=== PATIENT | female | born 1965 | race Caucasian/White ===

== ENCOUNTER → 2019-06-21 11:53 | Outpatient (BNVA) | payer MEDICARE, SELFPAY | PROVIDERS: Family Provider Nurse Practitioner Family; PCP Family Medicine; Visit Provider Family Medicine | DX: E78.5 Hyperlipidemia, unspecified (principal); I10 Essential (primary) hypertension; M25.519 Pain in unspecified shoulder | CPT/HCPCS: 80053; 80061; 84443; 85025 ==

== ENCOUNTER → 2019-08-23 11:55 | Outpatient (BNVA) | payer MEDICARE, SELFPAY | PROVIDERS: Family Provider Nurse Practitioner Family; PCP Family Medicine; Visit Provider Family Medicine | DX: I10 Essential (primary) hypertension (principal); E78.5 Hyperlipidemia, unspecified | CPT/HCPCS: 80053; 80061; 85025 ==

== ENCOUNTER → 2021-07-01 11:45 | Outpatient (BNVA) | payer MEDICARE, SELFPAY | PROVIDERS: Family Provider Nurse Practitioner Family; PCP Family Medicine; Visit Provider Family Medicine | DX: I10 Essential (primary) hypertension (principal); G43.909 Migraine, unspecified, not intractable, without status migrainosus; E78.2 Mixed hyperlipidemia | CPT/HCPCS: 80053; 80061; 84443; 85025 ==

== ENCOUNTER 2021-09-14 20:15 | Emergency (ER) | payer MEDICARE, SELFPAY ==
[2021-09-14 20:24] VITALS: BP 169/99; PULSE 68; RESP 18; TEMP 36.7; O2SAT 96; BMI 27.4
--- NOTE | 2021-09-14 20:24 | XRR_ITS ---
PROCEDURE INFORMATION: Exam: XR Right Forearm Exam date and time: 09/14/2021 8:37 PM Age: 55 years old Clinical indication: Injury or trauma; Fall; Blunt trauma (contusions or hematomas); Arm, lower; Right; Patient HX: Tripped and fell C/O pain R humerus to wrist TECHNIQUE: Imaging protocol: Radiologic exam of the Right forearm. Views: 2 views. COMPARISON: No relevant prior studies available. FINDINGS: Bones/joints: There is subtle contour abnormality at the radial head neck junction suspicious for fracture. Soft tissues: There are anterior and posterior fat pad signs. XR/XR forearm RT 2V [id number] IMPRESSION: There is subtle contour abnormality at the radial head neck junction suspicious for fracture.
--- NOTE | 2021-09-14 20:24 | XRR_ITS ---
PROCEDURE INFORMATION: Exam: XR Right Humerus Exam date and time: 09/14/2021 8:29 PM Age: 55 years old Clinical indication: Injury or trauma; Fall; Blunt trauma (contusions or hematomas); Arm, upper; Right; Patient HX: Tripped and fell C/O pain R humerus to wrist TECHNIQUE: Imaging protocol: Radiologic exam of the Right humerus. Views: 2 or more views. COMPARISON: CT chest con [id number] 09/14/2018 2:43 PM FINDINGS: Bones/joints: Normal. Soft tissues: Normal. XR/[place] [id number] IMPRESSION: No acute findings.
--- NOTE | 2021-09-14 20:24 | XRR_ITS ---
PROCEDURE INFORMATION: Exam: XR Right Elbow Exam date and time: 09/14/2021 8:37 PM Age: 55 years old Clinical indication: Injury or trauma; Fall; Blunt trauma (contusions or hematomas); Elbow; Right; Patient HX: Tripped and fell C/O pain R humerus to wrist TECHNIQUE: Imaging protocol: Radiologic exam of the Right elbow. Views: 3 or more views. COMPARISON: [place] [id number] 09/14/2021 8:29 PM FINDINGS: Bones/joints: There is subtle contour abnormality at radial head neck junction suspicious for fracture. Soft tissues: Anterior and posterior fat pad signs consistent with elbow joint effusion. XR/XR elbow RT min 3V* [id number] IMPRESSION: 1. There is subtle contour abnormality at the radial head neck junction suspicious for fracture. 2. Elbow joint effusion.
--- NOTE | 2021-09-14 20:24 | XRR_ITS ---
PROCEDURE INFORMATION: Exam: XR Right Wrist Exam date and time: 09/14/2021 8:37 PM Age: 55 years old Clinical indication: Injury or trauma; Fall; Blunt trauma (contusions or hematomas); Right; Patient HX: Tripped and fell C/O pain R humerus to wrist TECHNIQUE: Imaging protocol: Radiologic exam of the Right wrist. Views: 3 or more views. COMPARISON: No relevant prior studies available. FINDINGS: Bones/joints: Normal. Soft tissues: Normal. XR/XR wrist RT min 3V* [id number] IMPRESSION: No acute findings.
--- NOTE | 2021-09-14 20:25 | W.ED.UPPEXIN ---
HPI - Extremity Injury (Upper) General: Chief Complaint: Fall Stated Complaint: right arm injury Time Seen by Provider: 09/14/21 20:16 Source: patient Mode of arrival: ambulatory Limitations: no limitations History of Present Illness: Patient is a nice 55-year-old female who presents to ED today along with her for evaluation of her right upper extremity injury that she sustained earlier today after tripping over her dog. She states she is not sure how she fell onto the extremity and does not know if she fell onto her outstretched hand. She complains of pain to the distal humerus region into her elbow, forearm, and wrist. She states she did fall onto her right knee however this is not bothering her and she is ambulatory without difficulty. She denies striking her head or LOC. No neck or back pain. She does not complain of any numbness, tingling, loss of sensation to her upper extremity. MD complaint: injury to: right, arm, elbow, forearm and wrist Onset (ago): hour(s) Place: home Relieving factors: immobilization Exacerbating factors: movement of extremity Context: fall Associated symptoms: Reports no associated symptoms; Denies neck pain Review of Systems Musc: Reports: extremity pain (R UE) and joint pain (R elbow/wrist); Denies: neck pain, back pain, extremity swelling or joint swelling Neuro: Denies: numbness in extremities or sensory changes [facility] ED PFSH: Medical History (Updated 09/14/21 @ 21:26 by HARDEEP Howell) Hyperlipidemia Hypertension Stroke Thoracic aortic aneurysm Surgical History History of hysterectomy Family History Other Cancer Diabetes Hypertension Social History Smoking and tobacco status: current every day smoker (1/2 PPD) Alcohol intake: current Alcohol intake frequency: holidays/special occasions only Household members: spouse Marital status: Physical Exam Const: COMMON NORMALS: no acute distress, patient oriented x3, no limitations and alert GENERAL APPEARANCE: cooperative Extremity: COMMON NORMALS: normal to inspection and capillary refill normal GENERAL: Yes normal exam except as noted RIGHT UPPER EXTREMITY: Yes upper arm, Yes elbow joint, Yes lower arm and Yes wrist OTHER: pt has tenderness from R distal humerus down to her wrist; there are no obvious bony deformities; NV intact with normal sensation, pulses, and cap refill; pain seems to be worse in the elbow/forearm with supination/pronation Neuro: COMMON NORMALS: patient oriented x3, moves all extremities, no focal motor deficits and no sensory deficits noted SENSORIUM/ORIENTATION: Yes alert Skin: COMMON NORMALS: no rashes or lesions noted GENERAL SKIN EXAM: no rashes or lesions noted TRAUMA: no lacerations or abrasions Course Vital Signs: Vital signs: Vital Signs Temperature 98.1 F 09/14/21 20:24 Pulse Rate 68 09/14/21 20:24 Respiratory Rate 20 H 09/14/21 20:58 Blood Pressure 169/99 09/14/21 20:24 Pulse Oximetry 96 09/14/21 20:24 MDM - Extremity Injury (Upper) Medical Decision Making Personal interpretation of XRs show positive fat pad signs and probable radial head fracture. Will splint/sling and have her follow up with orthopedics. Lab Data Radiology Impressions Elbow X-Ray 09/14/21 20:24 IMPRESSION: 1. There is subtle contour abnormality at the radial head neck junction suspicious for fracture. 2. Elbow joint effusion. Forearm X-Ray 09/14/21 20:24 IMPRESSION: There is subtle contour abnormality at the radial head neck junction suspicious for fracture. Humerus X-Ray 09/14/21 20:24 IMPRESSION: No acute findings. Wrist X-Ray 09/14/21 20:24 IMPRESSION: No acute findings. Discharge Plan Discharge Patient Disposition: Home Clinical Impression: Closed fracture of head of right radius Qualifiers: Encounter type: initial encounter Fracture alignment: nondisplaced Qualified Code(s): S52.124A - Nondisplaced fracture of head of right radius, initial encounter for closed fracture Condition: Stable Prescriptions: New hydrocodone-acetaminophen 5-325 mg tablet 1 tab PO Q6H PRN (Reason: pain) Qty: 14 0RF No Action acetaminophen [Tylenol] 325 mg tablet 325 mg PO QID PRN0RF hydrochlorothiazide 25 mg tablet 25 mg PO DAILY Qty: 90 5RF Bystolic 5 mg tablet 5 mg PO DAILY Qty: 90 3RF Rx Instructions: Patient has coupon ezetimibe [Zetia] 10 mg tablet 10 mg PO DAILY Qty: 90 0RF Ultra CoQ10 75 mg capsule 75 mg PO DAILY Qty: 90 4RF Discharge Orders: Discharge ED (Routine); Ordered 09/14/21 Ordered By: Irina Lawrence Referrals: Marybeth Ellis MD [Primary Care Provider] - Patient Instructions: Opioid Safety Coding Level of Care Code ED Chief Wharfinger for Chg Fwd Exam Expanded Problem Focused
[2021-09-14 20:58] VITALS: RESP 20
[2021-09-14] MEDS: morphine 4 mg/mL SDV 1 mL IM (20:58)
[2021-09-14 21:50] VITALS: BP 148/83; PULSE 68; RESP 16; O2SAT 93
--- NOTE | 2021-09-15 07:40 | DCPLANNER ---
Addendum entered by Shanta Lopez 09/17/21 15:51: Patient had a follow up appointment scheduled for 09.17.[address] Mckinley at ortho - patient did attend appointment. Original Note: web project manager had message to schedule a follow up appointment for patient with ortho. web project manager sent patients information to the front office staff at ortho. Patients information will be printed and reviewed. Clinic will call patient with appointment information.
== END 2021-09-14 21:51 | disposition home or self-care (01) ==
PROVIDERS: Emergency Provider Physician Assistant; PCP Family Medicine
DX: S52.124A Nondisplaced fracture of head of right radius, initial encounter for closed fracture (principal); E78.5 Hyperlipidemia, unspecified; I10 Essential (primary) hypertension; Z86.73 Personal history of transient ischemic attack (TIA), and cerebral infarction without residual deficits; F17.210 Nicotine dependence, cigarettes, uncomplicated; W01.0XXA Fall on same level from slipping, tripping and stumbling without subsequent striking against object, initial encounter
CPT/HCPCS: 29505; 73060; 73080; 73090; 73110; 96372; 99284; J2270

== ENCOUNTER → 2021-09-17 13:51 | Outpatient (BNVA) | payer MEDICARE, SELFPAY | PROVIDERS: PCP Family Medicine; Visit Provider Orthopaedic Surgery | DX: W01.0XXA Fall on same level from slipping, tripping and stumbling without subsequent striking against object, initial encounter (principal); S52.124A Nondisplaced fracture of head of right radius, initial encounter for closed fracture | CPT/HCPCS: 24650; 99203 ==

== ENCOUNTER → 2021-10-08 10:31 | Outpatient (BNVA) | payer MEDICARE, SELFPAY | PROVIDERS: PCP Family Medicine; Visit Provider Nurse Practitioner Family | DX: S52.121A Displaced fracture of head of right radius, initial encounter for closed fracture (principal); W01.0XXA Fall on same level from slipping, tripping and stumbling without subsequent striking against object, initial encounter | CPT/HCPCS: 73080; 99203; 99214 ==

== ENCOUNTER → 2021-11-05 08:52 | Outpatient (BNVA) | payer MEDICARE, SELFPAY | PROVIDERS: PCP Family Medicine; Visit Provider Nurse Practitioner Family | DX: S52.124A Nondisplaced fracture of head of right radius, initial encounter for closed fracture (principal); W01.0XXA Fall on same level from slipping, tripping and stumbling without subsequent striking against object, initial encounter | CPT/HCPCS: 73080; 99213; 99214 ==

== ENCOUNTER → 2022-08-05 10:33 | Outpatient (BNVA) | payer MEDICARE, SELFPAY | PROVIDERS: PCP Family Medicine; Visit Provider Family Medicine | DX: M25.531 Pain in right wrist (principal); I10 Essential (primary) hypertension; R53.83 Other fatigue; E78.5 Hyperlipidemia, unspecified | CPT/HCPCS: 73110; 80053; 80061; 84443; 85025 ==

== ENCOUNTER → 2022-09-07 08:49 | Outpatient (BNVA) | payer MEDICARE, SELFPAY | PROVIDERS: PCP Family Medicine; Referring Provider Family Medicine; Visit Provider Student in an Organized Health Care Education/Training Program | DX: M65.4 Radial styloid tenosynovitis [de Quervain] (principal) | CPT/HCPCS: 73110; 99203 ==

== ENCOUNTER → 2023-05-20 17:02 | Outpatient (BNVA) | payer MEDICARE, SELFPAY | PROVIDERS: PCP Family Medicine; Visit Provider Family Medicine | DX: R32 Unspecified urinary incontinence (principal) | CPT/HCPCS: 81000 ==

== ENCOUNTER → 2023-06-21 08:55 | Outpatient (BNVA) | payer MEDICARE, SELFPAY | PROVIDERS: PCP Family Medicine; Visit Provider Nurse Practitioner Family | DX: R30.0 Dysuria (principal) | CPT/HCPCS: 81000 ==

== ENCOUNTER 2023-07-08 13:54 | Outpatient (CLI) | payer MEDICARE, SELFPAY ==
--- NOTE | 2023-07-08 14:02 | XR_ITS ---
WS: [email or web address] Lumbar spine, 3 views, 07/08/2023 Clinical Data: M54.9 - Dorsalgia, unspecified Comparison: None. Findings: No compression fractures or subluxation is seen. No disc space narrowing is seen. The transverse proc esses and SI joints are normal. There are minimal osteoarthritic spurs lumbar vertebral bodies L1-L4. There is a dextroscoliosis loren g with osteoporosis. The abdominal aorta shows calcification but no aneurysm. XR/XR lumbar spine 2-3V* [id number] Impression: Minimal osteoarthritis along with osteoporosis and dextroscoliosis.
--- NOTE | 2023-07-08 14:02 | XR_ITS ---
WS: [email or web address] KUB, AP view, 07/08/2023 Clinical Data: R10.9 - Unspecified abdominal pain Comparison: None. Findings: No abnormal intraabdominal masses or calcifications are seen. There is no dilatated small bowel or ev idence of obstruction. There is a moderate amount of fecal material throughout the colon. There is a dextroscoliosis with os teoarthritis of the lumbar vertebral bodies. There are probably cartilage calcifications overlying th e right kidney. XR/XR KUB [id number] Impression: Moderate fecal material in the colon.
--- NOTE | 2023-07-08 14:02 | XR_ITS ---
WS: [email or web address] Sacroiliac joints, 3 views, 07/08/2023 Clinical Data: M53.3 - Sacrococcygeal disorders, not elsewhere classified Comparison: None. Findings: The SI joints are normal in width. No erosion, sclerosis or destruction is seen. There are no fractur es or dislocations. The adjacent visualized pelvis and hips are unremarkable. XR/XR sacroiliac jts m 3V [id number] Impression: Negative SI joints.
== END 2023-07-08 13:55 | disposition home or self-care (01) ==
LOC: RAD 13:55
PROVIDERS: PCP Family Medicine; Visit Provider Nurse Practitioner Family
DX: R10.9 Unspecified abdominal pain (principal); M53.3 Sacrococcygeal disorders, not elsewhere classified; M54.9 Dorsalgia, unspecified; M81.0 Age-related osteoporosis without current pathological fracture; M41.86 Other forms of scoliosis, lumbar region
CPT/HCPCS: 72100; 72202; 74018

== ENCOUNTER 2024-08-09 11:27 | Emergency (ER) | payer MEDICARE, SELFPAY ==
--- NOTE | 2024-08-09 11:29 | CT_ITS ---
WS: [email or web address] CT HEAD TECHNIQUE: Noncontrast CT of the head obtained from the skullbase to the vertex. CLINICAL INFORMATION: Symptoms of acute stroke COMPARISON: 2018 DLP: [address] scans at [facility] use at least one of these dose optimization techniques: automated exposure control; mA and/or kV adjustment per patient size (includes targeted exams where dose is matched to clinical indication); or iterative reconstruction. FINDINGS: No evidence of intracranial hemorrhage or mass effect. Ventricular system and basal cisterns are patent. Moderate small vessel changes with mild parenchymal volume loss. Postoperative changes from prior aneurysm clip placement along the distal LEFT vertebral artery in the PICA territory and LEFT MCA. Tiny chronic lacunar infarct LEFT caudate. Postoperative changes LEFT occipital craniectomy and LEFT temporal craniotomy. Paranasal sinuses and mastoid air cells are well aerated. .Normal visualized soft tissues. CT/CT head thrombolytic [id number] IMPRESSION: 1. No evidence of intracranial hemorrhage or mass effect. 2. Vascular calcification. 3. Moderate small vessel changes progressed since 2018. Mild parenchymal volum e loss. 4. Previously described LEFT MCA and LEFT PICA aneurysm clipping 5. Tiny chronic lacunar infarct LEFT caudate unchanged. 6. No acute intracranial findings. Notified Wilfredo Robles DO at 08/09/2024 11:41 AM.
--- NOTE | 2024-08-09 11:29 | ECG_ITS ---
[employer] Test Date: 2024-08-09 Pat Name: Em Cleveland Department: Room: Gender: Female Grocery Shopper: : 1965 Requested By: Wilfredo Smith Order Number: [id number] Ochoa MD: Pacheco Holbrook M.D. Measurements Intervals [place] Rate: 62 P: 52 NC: 158 QRS: 24 QRSD: 92 T: 43 QT: 423 QTc: 430 Interpretive Statements SINUS RHYTHM MODERATE ST DEPRESSION [0.05+ mV ST DEPRESSION] No previous ECG available for comparison Electronically Signed On 08-10-2024 06:03:07 CDT by Pacheco Holbrook M.D. [email or web address]
--- NOTE | 2024-08-09 11:30 | W.ED.NEUROSD ---
HPI - Neuro Symptoms/Deficit General: Chief Complaint: Neuro Symptoms/Deficit Stated Complaint: Stroke alert Time Seen by Provider: 08/09/24 11:31 History of Present Illness: 58-year-old female presents emergency room. She is a stroke alert. She had sharp pain in the back of her head earlier this morning went to her primary care doctor some concern about her balance that seems to have resolved. Initially seen in CT suite for stroke score is 0 Associated symptoms: Deny chest pain Related Data Home Medications ?Medication ?Instructions ?Recorded ?Confirmed acetaminophen 325 mg tablet 325 mg PO QID PRN Pain 04/22/20 08/09/24 (Tylenol) Previous Rx's ?Medication ?Instructions ?Recorded hydrochlorothiazide 25 mg tablet 25 mg PO DAILY #90 tabs 08/09/24 triamcinolone acetonide 0.1 % 1 applic topical BID 14 days #80 08/09/24 topical cream grams Allergies Allergy/AdvReac Type Severity Reaction Status Date / Time Iodinated Contrast Media Allergy rash Verified 08/19/23 10:36 ketorolac (From Toradol) Allergy Unknown Verified 08/19/23 10:12 Review of Systems Const: Denies: fever(s) or chills Card: Denies: chest pain Resp: Denies: dyspnea GI: Denies: abdominal pain : Denies: dysuria, urinary frequency or urinary urgency Musc: Denies: neck pain or back pain Skin/Breast: Denies: rash PFSH ED PFSH: Medical History Brain aneurysm 2 surgeries clips placed 2001 and 2011 Hypertension Stroke Thoracic aortic aneurysm Hyperlipidemia Surgical History History of hysterectomy Family History Other Cancer Diabetes Hypertension Social History Smoking and tobacco/nicotine status: current every day tobacco/nicotine user Alcohol intake: current Alcohol intake frequency: holidays/special occasions only Household members: spouse Marital status: NIH stroke score NIHSS: Level Of Consciousness - 1a: 0 Level Of Consciousness Questions - 1b: Both Correct Level Of Consciousness Commands - 1c: Both Correct Best Gaze - 2: Normal Visual Callahan - 3: No Visual Loss Facial Palsy - 4: Normal Motor Arm Right - 5: No Drift Motor Arm Left - 5: No Drift Motor Leg Right - 6: No Drift Motor Leg Left - 6: No Drift Limb Ataxia - 7: Absent Sensory - 8: Normal Best Language - 9: No Aphasia Dysarthia - 10: Normal Extinction And Inattention - 11: 0 Score: Total Score: 0 Physical Exam Const: COMMON NORMALS: no acute distress GENERAL APPEARANCE: cooperative and comfortable ORIENTATION/CONSCIOUSNESS: Yes awake, Yes oriented to person, Yes oriented to place and Yes oriented to time HENMT: COMMON NORMALS: normocephalic, atraumatic and hearing grossly normal bilaterally HEAD & SCALP: normocephalic and atraumatic Resp: COMMON NORMALS: normal respiratory effort, No retractions, No use of accessory muscles and clear to auscultation bilaterally AUSCULTATION: clear to auscultation bilaterally Cardio: COMMON NORMALS: regular rate, regular rhythm and No murmurs present (Cardio) RATE: regular rate RHYTHM: regular rhythm GI: COMMON NORMALS: Soft to palpation and No hepatosplenomegaly present AUSCULTATION: Yes normoactive bowel sounds PALPATION: Yes Soft to palpation, No Tenderness to palpation present (GI), No Guarding due to palpation present (GI) and Yes No hepatosplenomegaly present Extremity: COMMON NORMALS: normal to inspection, capillary refill normal, no clubbing, cyanosis or edema, no calf tenderness and no pedal edema Neuro: SENSORIUM/ORIENTATION: Yes oriented to person, Yes oriented to place and Yes oriented to time Skin: COMMON NORMALS: no rashes or lesions noted GENERAL SKIN EXAM: no rashes or lesions noted Course Vital Signs: Vital signs: Vital Signs Pulse Rate 73 08/09/24 13:23 Respiratory Rate 17 08/09/24 13:00 Blood Pressure 165/82 08/09/24 13:23 Pulse Oximetry 96 08/09/24 13:23 MDM - Neuro Symptoms/Deficit Medical Decision Making Patient refuses CT of the head. She is concerned that the dye will get caught in valves in her veins and then cause pain when it comes gushing through after the valves break open. Try to discuss with is not really how the medicine works additionally that there are not valves in the arterial side where we are actually trying to evaluate the brain. As to the allergy that he dies have changed drastically and premedicate this is usually not an issue. She is convinced that it will cause severe pain and refuses. She has no residual symptoms at this time we will discharge her home have her follow-up with her primary care doctor. No sign the patient had TIA or stroke at this time. The sharp sudden headache absent any other neurologic findings do not believe that she had an acute neurologic event this morning in terms of stroke or TIA. Lab Data 08/09/24 11:35 08/09/24 11:[address] 08/09/24 11:29 IMPRESSION: 1. No evidence of intracranial hemorrhage or mass effect. 2. Vascular calcification. 3. Moderate small vessel changes progressed since 2018. Mild parenchymal volume loss. 4. Previously described LEFT MCA and LEFT PICA aneurysm clipping 5. Tiny chronic lacunar infarct LEFT caudate unchanged. 6. No acute intracranial findings. Notified Wilfredo Robles DO at 08/09/2024 11:41 AM. Laboratory Results WBC 8.72 10^3/uL (3.29-11.43) 08/09/24 11:35 RBC 4.08 10^6/uL (3.85-5.65) 08/09/24 11:35 Hgb 12.90 g/dL (11.27-16.99) 08/09/24 11:35 Hct 38.3 % (36-47) 08/09/24 11:35 MCV 93.9 fl (85-98) 08/09/24 11:35 MCH 31.6 pg (27-33) 08/09/24 11:35 MCHC 33.7 g/dL (30-55) 08/09/24 11:35 RDW 14.6 % (12.1-15.1) 08/09/24 11:35 Plt Count 218 10^3/cmm (157-399) 08/09/24 11:35 MPV 10.1 fL (7.4-10.4) 08/09/24 11:35 Neut % (Auto) 62.9 % 08/09/24 11:35 Lymph % (Auto) 33.8 % 08/09/24 11:35 [place] % (Auto) 2.6 % 08/09/24 11:35 Eos % (Auto) 0.2 % 08/09/24 11:35 Baso % (Auto) 0.3 % 08/09/24 11:35 Neut # (Auto) 5.47 10^3/uL (1.8-7.7) 08/09/24 11:35 Lymph # (Auto) 3.0 10^3/uL (0.8-4.8) 08/09/24 11:35 [place] # (Auto) 0.2 10^3/uL (0.2-0.9) 08/09/24 11:35 Eos # (Auto) 0.0 10^3/uL (0.0-0.8) 08/09/24 11:35 Baso # (Auto) 0.0 10^3/uL (0.0-0.1) 08/09/24 11:35 Nucleated RBC % (auto) 0 % 08/09/24 11:35 Nucleated RBCs # 0.0 /100WBC 08/09/24 11:35 PT 13.80 SECONDS (12.1-14.9) 08/09/24 11:35 INR 0.99 (0.8-1.2) 08/09/24 11:35 APTT 28.2 SECONDS (23.9-36.7) 08/09/24 11:35 Sodium 137 mmol/L (136-145) 08/09/24 11:35 Potassium 3.9 mmol/L (3.5-5.1) 08/09/24 11:35 Chloride 101 mmol/L (98-107) 08/09/24 11:35 Carbon Dioxide 25 mmol/L (22-29) 08/09/24 11:35 Anion Gap 14.9 (5-19) 08/09/24 11:35 BUN 6 mg/dL (8-23) L 08/09/24 11:35 Creatinine 0.5 mg/dL (0.5-0.9) 08/09/24 11:35 GFR Calculation 125.9 mL/min (90-130) 08/09/24 11:35 Glucose 99 mg/dL (65-115) 08/09/24 11:35 POC Glucose 96 mg/dL (70-110) 08/09/24 11:55 Calculated Osmolality 282 mOsm/kg (285-295) L 08/09/24 11:35 Calcium 9.2 mg/dL (8.5-10.5) 08/09/24 11:35 Total Bilirubin 0.3 mg/dL (0.15-1.2) 08/09/24 11:35 AST 18 U/L (0-32) 08/09/24 11:35 ALT 10 U/L (0-33) 08/09/24 11:35 Alkaline Phosphatase 107 U/L (35-105) H 08/09/24 11:35 Total Protein 7.6 g/dL (6.6-8.7) 08/09/24 11:35 Albumin 4.3 g/dL (3.5-5.2) 08/09/24 11:35 Globulin 3.3 g/dL (1.3-4.6) 08/09/24 11:35 Urine Color Yellow (Yellow) 08/09/24 13:00 Urine Appearance Clear (CLEAR) 08/09/24 13:00 Urine pH 7.0 (5-7) 08/09/24 13:00 Ur Specific [place] 1.006 (1.005-1.030) 08/09/24 13:00 Urine Protein Negative (Negative) 08/09/24 13:00 Urine Glucose (UA) Negative (Normal) 08/09/24 13:00 Urine Ketones Negative (Negative) 08/09/24 13:00 Urine Blood Negative (Negative) 08/09/24 13:00 Urine Nitrate Negative (Negative) 08/09/24 13:00 Urine Bilirubin Negative (Negative) 08/09/24 13:00 Urine Urobilinogen 1.0 mg/dL (Negative) 08/09/24 13:00 Ur Leukocyte Esterase Negative (Negative) 08/09/24 13:00 Urine RBC 0-2 /hpf (0-2) 08/09/24 13:00 Urine WBC 0-5 /hpf (0-5) 08/09/24 13:00 Ur Squamous Epith Cells 0-5 /hpf (0-5) 08/09/24 13:00 Amorphous Sediment Not Reportable 08/09/24 13:00 Urine Bacteria None seen /hpf (NONE) 08/09/24 13:00 Hyaline Casts 0-4 /lpf H 08/09/24 13:00 Urine Opiates Screen Negative ng/mL (Negative) 08/09/24 13:00 Ur Barbiturates Screen Negative ng/mL (Negative) 08/09/24 13:00 Ur Phencyclidine Scrn Negative ng/mL (Negative) 08/09/24 13:00 Ur Amphetamines Screen Negative ng/mL (Negative) 08/09/24 13:00 U Benzodiazepines Scrn Negative ng/mL (Negative) 08/09/24 13:00 Urine Cocaine Screen Negative ng/mL (Negative) 08/09/24 13:00 U Marijuana (THC) Screen Negative ng/mL (Negative) 08/09/24 13:00 All radiology interpretation(s) finalized by discharge Discharge Plan Discharge Patient Disposition: Home Clinical Impression: Headache Condition: Stable Prescriptions: No Action acetaminophen [Tylenol] 325 mg tablet 325 mg PO QID PRN (Reason: Pain) triamcinolone acetonide 0.1 % cream 1 applic topical BID 14 Days Qty: 80 0RF hydrochlorothiazide 25 mg tablet 25 mg PO DAILY Qty: 90 3RF Discharge Orders: Discharge ED (Routine); Ordered 08/09/24 Ordered By: Wilfredo Robles Referrals: Ivet Cunningham FNP-C [Primary Care Provider, Family Practice] Discharge Diet: Usual diet Discharge Activity: Increase activity as tolerated Patient Instructions: Opioid Safety, Pain Management Activity Restrictions/Additional Instructions: Thank you for choosing [facility] for your healthcare needs today. It is very important that you follow up as instructed or that you return to the Emergency Department should you have concerns or if your condition changes or worsens in any way. You are seen in the emergency room after a sharp pain in your head. The CT of your head did not show any acute bleeding or acute stroke. Your stroke score was 0. We did recommend the CTA of the head and neck to evaluate for any further aneurysms or bleeding where the previous aneurysm clips were. You elected not to do this. You have recurrent symptoms recheck. Print Language: Beninese Coding Level of Care Code ED Emergency Management Coordinator for Maureen Hurley
[2024-08-09 11:48] LABS: Basophils % 0.3 %; Eosinophils % 0.2 %; Hematocrit 38.3 % (36-47); Lymphocytes % 33.8 %; Mean Corpuscular HGB Conc 33.7 g/dL (30-55); Mean Corpuscular Hemoglobin 31.6 pg (27-33); Mean Corpuscular Volume 93.9 fl (85-98); Mean Platelet Volume 10.1 fL (7.4-10.4); Monocytes # 0.2 10^3/uL (0.2-0.9); Monocytes % 2.6 %; Neutrophils # 5.47 10^3/uL (1.8-7.7); Neutrophils % 62.9 %; Nucleated Red Blood Cells % 0 %; Platelet Count 218 10^3/cmm (157-399); Red Blood Count 4.08 10^6/uL (3.85-5.65); Red Cell Distribution Width 14.6 % (12.1-15.1); White Blood Count 8.72 10^3/uL (3.29-11.43)
[2024-08-09 12:00] VITALS: BP 177/84; PULSE 63; O2SAT 96
[2024-08-09 12:00] LABS: INR 0.99 (0.8-1.2)
[2024-08-09 12:01] LABS: Partial Thromboplastin Time 28.2 SECONDS (23.9-36.7)
[2024-08-09 12:06] LABS: Alanine Aminotransferase 10 U/L (0-33); Albumin Level 4.3 g/dL (3.5-5.2); Alkaline Phosphatase 107 U/L (35-105); Anion Gap 14.9 (5-19); Aspartate Amino Transferase 18 U/L (0-32); Blood Urea Nitrogen 6 mg/dL (8-23); Calcium 9.2 mg/dL (8.5-10.5); Carbon Dioxide 25 mmol/L (22-29); Chloride 101 mmol/L (98-107); Globulin 3.3 g/dL (1.3-4.6); Glomerular Filtration Rate 125.9 mL/min (90-130); Glucose 99 mg/dL (65-115); Osmolality Calculated 282 mOsm/kg (285-295); Potassium 3.9 mmol/L (3.5-5.1); Sodium 137 mmol/L (136-145); Total Bilirubin 0.3 mg/dL (0.15-1.2); Total Protein 7.6 g/dL (6.6-8.7)
[2024-08-09 12:08] LABS: Glucose Point of Care 96 mg/dL (70-110)
[2024-08-09 13:00] VITALS: BP 165/73; PULSE 63; RESP 17; O2SAT 96
[2024-08-09 13:08] LABS: Bilirubin Urine Negative (Negative); Blood Urine Negative (Negative); Glucose Urine UA Negative (Normal); Ketones Urine Negative (Negative); Leukocyte Esterase Urine Negative (Negative); Nitrate Urine Negative (Negative); Protein Urine Negative (Negative); Specific Gravity, Urine 1.006 (1.005-1.030); Urine Appearance Clear (CLEAR); Urine Color Yellow (Yellow)
[2024-08-09 13:10] LABS: Add Urine Microscopic? YES; Bacteria Urine None Seen /hpf; Hyaline Casts Urine 0-4 /lpf; RBC Urine 0-2 /hpf (0-2); Squamous Epithelial Cell Urine 0-5 /hpf (0-5); WBC Urine 0-5 /hpf (0-5)
[2024-08-09 13:15] LABS: Amphetamines Screen Urine Negative (Negative); Barbiturates Screen Urine Negative (Negative); Benzodiazepines Screen Urine Negative (Negative); Cocaine Screen Urine Negative (Negative); Opiate Screen Urine Negative (Negative); PCP Screen Urine Negative (Negative); THC Screen Urine Negative (Negative)
[2024-08-09 13:23] VITALS: BP 165/82; PULSE 73; O2SAT 96
== END 2024-08-09 13:25 | disposition home or self-care (01) ==
PROVIDERS: Emergency Provider Family Medicine; PCP Nurse Practitioner Family
DX: R51.9 Headache, unspecified (principal); Z72.0 Tobacco use; E78.5 Hyperlipidemia, unspecified; I10 Essential (primary) hypertension
CPT/HCPCS: 36415; 36416; 70450; 80053; 80306; 81001; 82962; 85025; 85610; 85730; 93005; 99284

== ENCOUNTER 2024-08-18 02:13 | Inpatient (IN) | payer MEDICARE, SELFPAY ==
[2024-08-18] VITALS (17 sets, daily range): BP systolic 96–198; BP diastolic 57–104; PULSE 64–87; RESP 14–23; TEMP 36.5–37.1; O2SAT 94–99; BMI 22.3
--- OUTSIDE RECORDS SUMMARY | 2024-08-18 02:22 | XMS_ITS | Encounter Summary ---
Author Organization [facility] Address [address] [place] [address] Care Team Providers Care Hand Flesher Name Role Phone Unavailable Primary Care Provider Unavailabl e Encounter Details Date Type Department Care Team (Late st Contact Info) Description 06/02/2000 Outpatient Historical [facility] cSotty Dupree MD [address] [phone] Follow-up examination, following unspecified surgery (Primary Dx) Social History Tobacco Use Types Packs/Day Years Used Date Smoking Tobacco: Never Assessed Comments Unknown Sex and Gender Information Value Date Recorded Sex Assigned at Not on file 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
--- OUTSIDE RECORDS SUMMARY | 2024-08-18 02:22 | XMS_ITS | Encounter Summary ---
Author Organization [facility] Address [address] [place] [address] Care Team Providers Care Certified Novell Engineer Name Role Phone Unavailable Primary Care Provider Unavailabl e Encounter Details Date Type Department Care Team (Late st Contact Info) Description 05/12/2000 Outpatient Historical [facility] Scotty Dupree MD [address] [phone] Incisional hernia (Primary Dx) Social History Tobacco Use Types Packs/Day Years Used Date Smoking Tobacco: Never Assessed Comments Unknown Sex and Gender Information Value Date Recorded Sex Assigned at Not on file 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
--- OUTSIDE RECORDS SUMMARY | 2024-08-18 02:22 | XMS_ITS | Encounter Summary ---
Author Organization [facility] Address [address] [place] [address] Care Team Providers Care Liner Worker Name Role Phone Unavailable Primary Care Provider Unavailabl e Encounter Details Date Type Department Care Team (Latest Contact Info) Description 10/06/2001 Outpatient Historical [facility] [address] [place] [phone] Jason Jones, Victoriano Haas MD NO ADDRESS ON FILE Excessive menstruation (Primary Dx); ANEMIA NOS Social History Tobacco Use Types Packs/Day Years Used Date Smoking Tobacco: Never Assessed Comments Unknown Sex and Gender Information Value Date Recorded Sex Assigned at Not on file Legal Sex Female 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
--- OUTSIDE RECORDS SUMMARY | 2024-08-18 02:22 | XMS_ITS | Encounter Summary ---
Author Organization [facility] Address [address] [place] [address] Care Team Providers Care Candy Dipper Name Role Phone Unavailable Primary Care Provider Unavailabl e Encounter Details Date Type Department Care Team (Late st Contact Info) Description 12/14/2001 Outpatient Historical [facility] Leia, Scotty Valladares MD [address] [phone] SURGERY FOLLOWUP, UNSPEC (Primary Dx) Social History Tobacco Use Types Packs/Day Years Used Date Smoking Tobacco: Never Assessed Comments Unknown Sex and Gender Information Value Date Recorded Sex Assigned at Not on file Legal Sex Female 3:39 AM STOCK TAKER Gender Identity Not on file Sexual Orientation Not on file documented as of this encounter Plan of Treatment Not on file documented as of this encounter Visit Diagnoses Diagnosis Follow-up examination, following unspecified surgery- Primary documented in this encounter
--- OUTSIDE RECORDS SUMMARY | 2024-08-18 02:22 | XMS_ITS | Encounter Summary ---
Author Organization [facility] Address [address] [place] [address] Care Team Providers Care Quilt Stuffer Name Role Phone Unavailable Primary Care Provider Unavailabl e Encounter Details Date Type Department Care Team (Late st Contact Info) Description 07/21/2000 Outpatient Historical [facility] Leia, Scotty Valladares MD [address] [phone] Follow-up examination, following unspecified surgery (Primary Dx) Social History Tobacco Use Types Packs/Day Years Used Date Smoking Tobacco: Never Assessed Comments Unknown Sex and Gender Information Value Date Recorded Sex Assigned at Not on file Legal 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
--- OUTSIDE RECORDS SUMMARY | 2024-08-18 02:22 | XMS_ITS | Clinical Summary ---
Author Organization [facility] Address [address] [place] [address] [address] [place] [address] Care Team Providers Care Sheet Roller Operator Name Role Phone Unavailable Primary Care Provider Unavailabl e Allergies Active Allergy Reactions Criticality Noted Date Comments Ketorolac Tromethamine Delirium Medium 05/14/2009 Medications morphine (MS IR) 15 mg Oral tablet Take 15 mg by mouth 3 times daily. Active Morphine 15 mg Oral Cap Take 15 mg by mouth every 4 hours as needed. Active hydrOXYzine HCl (ATARAX) 25 mg Oral tablet Take 25 mg by mouth 3 times daily as needed for Itching. 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 Gender Identity Not on file Sexual Orientation Not on file Last Filed Vital Signs Vital Sign Reading Time Taken Comments Blood Pressure 170/100 05/14/2009 2:15 PM CDT Pulse 82 05/14/2009 2:15 PM CDT Temperature - - Respiratory Rate 14 05/14/2009 2:15 PM CDT Oxygen Saturation - - Inhaled Oxygen Concentration - - Weight 79.4 kg (175 lb) 05/14/2009 2:15 PM CDT Height - - Body Mass Index - - Plan of Treatment Health Maintenance Due Date Last Done Comments DTAP/TDAP/TD VACCINES (1 - Tdap) 09/17/1982 HPV/Cotest (21-29) 09/17/1984 CERVICAL CANCER SCREENING 09/17/1993 HPV/Cotest (30-65) 09/17/1993 PAP SMEAR 09/17/1993 BREAST CANCER SCREENING 2003 COLORECTAL SCREENING 09/17/2008 Colorectal Cancer Screening 09/17/2008 FIT-DNA Q 3 years 09/17/2008 FIT/FOBT Q 1 year 09/17/2008 Flex Sig/CT Colonography Q 5 years 09/17/2008 ZOSTER VACCINE (1 of 2) 09/17/2013 INFLUENZA VACCINE (#1) 2023 RSV VACCINE (60+ or ) (1 - 1-dose 75+ series) 09/17/2038 HEPATITIS B VACCINES Aged Out No long er eligible based on patient's age to complete this topic Insurance DISABILITY DETERMINATION
--- OUTSIDE RECORDS SUMMARY | 2024-08-18 02:22 | XMS_ITS | Patient Health Record ---
Author Organization [facility] Address [address] [place], [place] [id number] Care Team Providers Care Patent Legal Assistant Name Role Phone Caleb Hall MD Primary Care Provider Lewis Short MD, [facility] [phone] Allergies Allergen (clinical drug ingredient) Drug/Non Drug Allergy documented on EMR Reaction Allergy Type Onset Date Status amitriptyline Amitriptyline (uncoded) Unknown Allergy Active Bellaspas (uncoded) Unknown Allergy Active citalopram Citalopram (uncoded) Unknown Allergy Active duloxetine Cymbalta (uncoded) Unknown Allergy Active Darvocet (uncoded) Unknown Allergy A ctive doxycycline Doxycycline (uncoded) Unknown Allergy Active Epidrin (uncoded) Unknown Allergy Ac tive Flexeril (uncoded) Unknown Allergy A ctive gabapentin Gabapentin (uncoded) Unknown Allergy Active metoprolol Metoprolol (uncoded) chest pain Allergy Active Migquin (uncoded) Unknown Allergy Ac tive Nimotop (uncoded) Unknown Allergy Ac tive paroxetine Paroxetine (uncoded) Unknown Allergy Active Promethazine (uncoded) Unknown Allergy Active propranolol Propanolol (uncoded) Unknown Allergy Active Toradol (uncoded) mental changes Allergy Active tramadol Tramadol (uncoded) Unknown Allergy A ctive Verapamil (uncoded) Unknown Allergy Active Reason For Referral No Information Medications Medication SIG (Take, Route, Frequency, Duration) Notes Start Date End Date Status Gas-X 80 mg 1 tab(s) orally 4 ti mes a day (after meals and at bedtime) for 5 day(s) Active Leonie-Venice Plus Cold 325 mg-2 mg-7.8 mg 1 tab(s) orally every 4 hours, prn for 5 day(s) Active MSIR 15 mg 1/2 - 1 tab(s) PO or ally Q4H prn breakthrough pain Active Tylenol Caplet 500 mg 2 tab(s) orally ev felisha 6 hours, prn for 5 day(s) Active MS Contin 15 mg 1 tab(s) PO orally Q12H Active Rolaids 550 mg-110 mg 2 tab(s) orally ev felisha hour, prn for 5 day(s) Active benazepril 10 mg 1 tab(s) orally once a day for 30 day(s) Active Pepto-Bismol 262 mg 2 tab(s) chewed 4 ti mes a day for 7 day(s) Active Warren Natural Water Pill as directed Active dimenhyDRINATE 50 mg 1 tab(s) orally jeyson ry 6 hours, prn for 5 day(s) Active Plan Of Treatment No Information Insurance Providers Payer Name Payer Address Payer Phone Subscriber Number Group Number Insured Name Patient Relationship to Insured Coverage Start Date Coverage End Date [facility] [place] [address] [place] [address] [id number] Em Cleveland Self - patient is the insured Medical (General) History Medical History History ICD Code Chronic pain syndrome Migraine headache Neck pain Right side middle cerebral aneurysm Post cerebrovascular accident Myalgias Hypertension Surgical History Surgery Date(Month/Year) Hysterectomy with right oophorectomy, ut erus 2007 Craniotomy to clip cerebral aneurysm 199 2 and 06/09/02 Scar tissue 2000 Hospitalization History Reason Date(Month/Year)
--- NOTE | 2024-08-18 02:26 | CTR_ITS ---
PROCEDURE INFORMATION: Exam: CT Head Without Contrast Exam date and time: 08/18/2024 2:39 AM Age: 58 years old Clinical indication: Pain; Headache; PELAYO and vomiting today. HX brain aneurysm x2 in the past TECHNIQUE: Imaging protocol: Computed tomography of the head without contrast. Radiation optimization: All CT scans at this facility use at least one of these dose optimization techniques: automated exposure control; mA and/or kV adjustment per patient size (includes targeted exams where dose is matched to clinical indication); or iterative reconstruction. COMPARISON: CT head thrombolytic [id number] 08/09/2024 11:26 AM RADIATION DOSE METRICS: Total DLP (mGy-cm): 1035.7 FINDINGS: Brain: Diffuse subarachnoid hemorrhage, predominantly the basal cistern. Periventricular and deep white matter hypodensities compatible with chronic microvascular ischemic changes. Chronic left basal ganglia infarct. No edema, mass effect or midline shift. Cerebral ventricles: Mild prominence of the lateral and 3rd ventricles. Paranasal sinuses: Visualized sinuses are unremarkable. No fluid levels. Mastoid air cells: No mastoid effusion. Bones: Aneurysmal clips noted in the left cranial and posterior fossae. Previous left temporal and suboccipital craniotomies. Soft tissues: Unremarkable. CT/CT head wo con* [id number] IMPRESSION: 1. Diffuse subarachnoid hemorrhage, predominantly in basal cisterns. Findings may be secondary to ruptured aneurysm. 2. Mild prominence of the lateral and 3rd ventricles.
[2024-08-18] MEDS: sodium chloride 0.9% 1,000 ML 999 ML IV (02:53)
[2024-08-18] MEDS: HYDROmorphone 0.5 MG/0.5 ML INJ 1 MG IVP (02:54)
[2024-08-18] MEDS: prochlorperazine 10 mg/2 mL Inj 5 MG IVP (02:54)
[2024-08-18] MEDS: diphenhydrAMINE 50 mg/mL SDV 1mL 25 MG IVP (02:55)
[2024-08-18] MEDS: nicardipine 20 MG/200 ML PREMIX 50 MG IV ×2 (03:15→06:41)
[2024-08-18] MEDS: levETIRAcetam 2,000 MG/200 ML PREMIX 400 MG IV (03:30)
--- NOTE | 2024-08-18 05:20 | PM.HP ---
Providers/Chief Complaint Admitting Physician: Isaac Fontaine MD Primary Care Provider: KIRSTIN Graham Chief Complaint: Headache History of Present Illness Em Cleveland is a 58 year old female with history of subarachnoid bleed 1989 treated with aneurysm clipping and then here 1999 also treated with aneurysm clipping comes in with headache starting 9 days ago on Wednesday. She was seen 08/09/[address] of the head showing past aneurysm clip in the left PICA territory vertebral artery and left MCA. She had postoperative changes of left occipital craniectomy and left temporal craniotomy without acute stroke. Patient had headaches worsened today with associated left eye droop. CT shows diffuse subarachnoid hemorrhage today predominantly in the basal cisterns. Patient declined transfer for aneurysm clipping. Jl and daughter Josey who is an RN on an NPU unit and also works in [place] and the emergency department confirmed that patient stated she did not want to transfer for aneurysm clipping or coiling. Patient does not want to go even if symptoms worsen and also that she does not want to have CPR. Patient is on a nicardipine drip at 6 and systolic blood pressure running 108-115. We lowered it to 5 and blood pressure now systolic 130. The patient received Dilaudid and now is somnolent. She arouses and converses but somewhat confused and falls back to sleep. I woke her up 3 times which she kept going to back to sleep. . Review of Systems Narrative: Review of systems taken from daughter who is a nurse because patient is somnolent General Positive for headache nausea vomiting some confusion she has not had unilateral stroke symptoms other than drooping left eye Cardiovascular no chest pain palpitations or edema Respiratory no shortness of breath cough wheezing no complaints GI no complaints Neuro positive for headache chronically since her initial aneurysm clipping's. She has occasional migraine. Headache was low-level this week but worsened today Medications/Allergies Home Medications ?Medication ?Instructions ?Recorded ?Confirmed ?Last Taken ?Type acetaminophen 325 mg tablet 325 mg PO QID PRN Pain 04/22/20 08/09/24 Unknown History (Tylenol) hydrochlorothiazide 25 mg tablet 25 mg PO DAILY #90 tabs 08/09/24 08/09/24 Unknown Rx triamcinolone acetonide 0.1 % 1 applic topical BID 14 days #80 08/09/24 08/09/24 Unknown Rx topical cream grams Allergies Allergy/AdvReac Type Severity Reaction Status Date / Time Iodinated Contrast Media Allergy rash Verified 08/19/23 10:36 ketorolac (From Toradol) Allergy Unknown Verified 08/19/23 10:12 PFSH Acute PFSH: Medical History Brain aneurysm 2 surgeries clips placed 2001 and 2011 Hypertension Stroke Thoracic aortic aneurysm Hyperlipidemia Surgical History History of hysterectomy Family History Other Cancer Diabetes Hypertension Social History (Updated 08/18/24 @ 05:40 by Isaac Fontaine MD) Smoking and tobacco/nicotine status: current every day tobacco/nicotine user Alcohol intake: current Alcohol intake frequency: holidays/special occasions only Additional social history: Patient is accompanied by her daughter Josey and Jl. CODE STATUS discussed this morning by Dr. Chacko and myself with patient and family confirmed to be DNR on 08/18/2024 Household members: spouse Marital status: Vitals/I&O/Wt Last Vital Signs Temp 97.8 F 08/18/24 02:19 Pulse 80 08/18/24 03:45 Resp 14 08/18/24 03:45 BP 133/74 08/18/24 03:45 Pulse Ox 98 08/18/24 03:45 O2 Del Method Nasal Cannula 08/18/24 03:45 O2 Flow Rate 2 08/18/24 03:45 08/17/24 08/17/24 08/18/24 14:59 22:59 06:59 Intake Total 88.333 / 88.333 Balance 88.333 / 88.333 Weight last 48 hrs Weight 60.781 kg Physical Exam Narrative: General well-developed well-nourished female sleeping. She arouses but falls easily back to sleep. She is in no cardiopulmonary distress blood pressure running 130s after drip adjusted to 5 on the nicardipine Neuro she is arousable and gives me her name and [place]. She thought it was june and when reoriented to July and I asked her to the year she told me it was June and then when we clarified with her that were looking for the year she told me it was 2013. She confirms that she does not want to have aneurysm clipping or transfer at this time Patient moves herself in bed independently rolling over on her right side. She is not cooperating with neuro exam pupils 2-1/2 mm and reactive bilaterally CV regular rate and rhythm Lungs clear to auscultation bilaterally Abdomen positive bowel sounds soft Calves no tenderness to pretibial edema A&P Assessment and plan (1) Ruptured aneurysm of intracranial artery: Will treat with the Nimodipine 60 mg every 4 hours p.o. and nicardipine to keep systolic blood pressure around 150 patient is admitted to the ICU. I discussed with the family that even without aneurysm clipping or surgery ICU treatment at neuro ICU would still involve more careful blood pressure and intracerebral blood flow monitoring and neurochecks then we will provide here. They understand that and follow the patient's wishes not to transfer. CODE STATUS confirmed as DO NOT RESUSCITATE (2) Subarachnoid bleed: As above (3) Brain aneurysm: As above no intervention for now (4) Hypertension: Daughter Josey states blood pressure is labile and runs high but the patient does take her medications as prescribed PDMP PDMP Reviewed: Not Reviewed Attestations Medical Necessity Statement*: Patient is admitted the ICU and expected to be hospitalized for greater than 2 midnights Coding Level of Care Code 01510 Diagnoses Ruptured aneurysm of intracranial artery I60.7 Subarachnoid bleed I60.9 Brain aneurysm I67.1 Essential hypertension I10 Hypertension type: essential hypertension Time Spent (min) 70
--- NOTE | 2024-08-18 06:05 | W.ED.HA ---
HPI - Headache General: Chief Complaint: Headache Stated Complaint: Headache Time Seen by Provider: 08/18/24 02:16 History of Present Illness: Patient with a history of multiple cerebral aneurysms, previously treated with surgical clipping, presents with sudden onset severe headache and vomiting. Symptoms are similar to a prior episode for which the patient was evaluated last Wednesday. The patient reports that a neurologist advised against further contrast studies due to prior complications affecting her veins. She expresses a desire for pain and nausea relief but does not wish to pursue further surgical intervention or coiling for aneurysms, as she has had multiple prior surgeries and the current aneurysms are reportedly deep and not amenable to intervention. She has experienced persistent vomiting and has not been drinking well, raising concern for dehydration. Related Data Home Medications ?Medication ?Instructions ?Recorded ?Confirmed acetaminophen 325 mg tablet 325 mg PO QID PRN Pain 04/22/20 08/09/24 (Tylenol) Previous Rx's ?Medication ?Instructions ?Recorded hydrochlorothiazide 25 mg tablet 25 mg PO DAILY #90 tabs 08/09/24 triamcinolone acetonide 0.1 % 1 applic topical BID 14 days #80 08/09/24 topical cream grams Allergies Allergy/AdvReac Type Severity Reaction Status Date / Time Iodinated Contrast Media Allergy rash Verified 08/19/23 10:36 ketorolac (From Toradol) Allergy Unknown Verified 08/19/23 10:12 [facility] ED PFSH: Medical History Brain aneurysm 2 surgeries clips placed 2001 and 2011 Hypertension Stroke Thoracic aortic aneurysm Hyperlipidemia Surgical History History of hysterectomy Family History Other Cancer Diabetes Hypertension Social History (Updated 08/18/24 @ 05:40 by Isaac Fontaine MD) Smoking and tobacco/nicotine status: current every day tobacco/nicotine user Alcohol intake: current Alcohol intake frequency: holidays/special occasions only Additional social history: Patient is accompanied by her daughter Josey and Jl. CODE STATUS discussed this morning by Dr. Chacko and myself with patient and family confirmed to be DNR on 08/18/2024 Household members: spouse Marital status: Physical Exam Const: COMMON NORMALS: patient oriented x3 and alert OTHER: moderate distress due to headache and vomiting HENMT: COMMON NORMALS: normocephalic and atraumatic HEAD & SCALP: normocephalic and atraumatic Eye: COMMON NORMALS: Equal, round and reactive pupils present, EOMs intact bilaterally and no scleral icterus PUPIL: Yes Equal, round and reactive pupils present Resp: COMMON NORMALS: normal respiratory effort and No retractions Cardio: COMMON NORMALS: regular rate, regular rhythm and No murmurs present (Cardio) RATE: regular rate RHYTHM: regular rhythm GI: COMMON NORMALS: Normal to inspection, nondistended, normoactive bowel sounds present, Soft to palpation and non-tender PALPATION: Yes Soft to palpation Neuro: COMMON NORMALS: patient oriented x3 SENSORIUM/ORIENTATION: Yes alert Skin: COMMON NORMALS: no rashes or lesions noted GENERAL SKIN EXAM: no rashes or lesions noted Course Vital Signs: Vital signs: Vital Signs Temperature 97.8 F 08/18/24 02:19 Pulse Rate 80 08/18/24 03:45 Respiratory Rate 14 08/18/24 03:45 Blood Pressure 133/74 08/18/24 03:45 Pulse Oximetry 98 08/18/24 03:45 Oxygen Delivery Me thod Nasal Cannula 08/18/24 03:45 Oxygen Flow Rate 2 08/18/24 03:45 MDM - Headache Medical Decision Making In summary, patient is a 4-year-old female seen for headache, nausea, vomiting, diarrhea, with CT scan showing significant subarachnoid hemorrhage. Of she has been told in the past that she has multiple aneurysms which are not located in places where the intervention can be performed or coils placed. She has multiple calls placed in the past. Both she and her confirm multiple times that they do not wish to proceed with any invasive interventions and would not like to be transferred to a larger facility where they typically take care of these matters. She was started on a Cardene drip and given Dilaudid for pain. Blood pressure has returned to normal and pain is well-controlled. Spoke with the hospitalist service who graciously agrees to admit the patient to the intensive care unit for further observation and care. Family is agreeable to the plan. Lab Data Radiology Impressions Head CT 08/18/24 02:26 IMPRESSION: 1. Diffuse subarachnoid hemorrhage, predominantly in basal cisterns. Findings may be secondary to ruptured aneurysm. 2. Mild prominence of the lateral and 3rd ventricles. ADDENDUM: 08/18/24 [id number] THIS REPORT CONTAINS FINDINGS THAT MAY BE CRITICAL TO PATIENT CARE. The findings were verbally communicated via telephone conference with Dr Chacko at 253 AM GELATIN DYNAMITE PACKING OPERATOR on 08/18/2024. The findings were acknowledged and understood. All radiology interpretation(s) finalized by discharge Discharge Plan Discharge Patient Disposition: Admitted As Inpatient Admit Provider: Isaac Fontaine Clinical Impression: Subarachnoid bleed, Ruptured aneurysm of intracranial artery Condition: Serious Coding Level of Care Code ED It Network Engineer for Maureen Hurley
--- OUTSIDE RECORDS SUMMARY | 2024-08-18 07:24 | XMS_ITS | Encounter Summary ---
Author Organization [facility] Address [address] [place] [address] Care Team Providers Care Clinical Data Assistant Name Role Phone Unavailable Primary Care Provider Unavailabl e Encounter Details Date Type Department Care Team (Late st Contact Info) Description 12/14/2001 Outpatient Historical [facility] Leia, Scotty Valladares MD [address] [phone] SURGERY FOLLOWUP, UNSPEC (Primary Dx) Social History Tobacco Use Types Packs/Day Years Used Date Smoking Tobacco: Never Assessed Comments Unknown Sex and Gender Information Value Date Recorded Sex Assigned at Not on file 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
--- OUTSIDE RECORDS SUMMARY | 2024-08-18 07:24 | XMS_ITS | Encounter Summary ---
Author Organization [facility] Address [address] [place] [address] Care Team Providers Care Funnel Coater Name Role Phone Unavailable Primary Care Provider Unavailabl e Encounter Details Date Type Department Care Team (Latest Contact Info) Description 10/06/2001 Outpatient Historical [facility] [address] [place] [phone] Jason Jones, Victoriano Haas MD NO ADDRESS ON FILE Excessive menstruation (Primary Dx); ANEMIA NOS Social History Tobacco Use Types Packs/Day Years Used Date Smoking Tobacco: Never Assessed Comments Unknown Sex and Gender Information Value Date Recorded Sex Assigned at Not on file Legal Sex Female 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
--- OUTSIDE RECORDS SUMMARY | 2024-08-18 07:24 | XMS_ITS | Encounter Summary ---
Author Organization [facility] Address [address] [place] [address] Care Team Providers Care Migration Specialist Name Role Phone Unavailable Primary Care Provider Unavailabl e Encounter Details Date Type Department Care Team (Late st Contact Info) Description 06/02/2000 Outpatient Historical HIS [facility] Scotty Dupree MD [address] [phone] Follow-up examination, following unspecified surgery (Primary Dx) Social History Tobacco Use Types Packs/Day Years Used Date Smoking Tobacco: Never Assessed Comments Unknown Sex and Gender Information Value Date Recorded Sex Assigned at Not on file Legal Sex Female 3:39 AM COIL WINDER HAND Gender Identity Not on file Sexual Orientation Not on file documented as of this encounter Plan of Treatment Not on file documented as of this encounter Visit Diagnoses Diagnosis Follow-up examination, following unspecified surgery- Primary documented in this encounter
--- OUTSIDE RECORDS SUMMARY | 2024-08-18 07:24 | XMS_ITS | Clinical Summary ---
Author Organization [facility] Address [address] [place] [address] [address] [place] [address] Care Team Providers Care Plaster And Stucco Worker Name Role Phone Unavailable Primary Care [...] on file Legal Sex Female 3:39 AM MANAGER PRODUCT MANAGEMENT Gender Identity Not on file Sexual Orientation [...]
--- OUTSIDE RECORDS SUMMARY | 2024-08-18 07:24 | XMS_ITS | Encounter Summary ---
Author Organization [facility] Address [address] [place] [address] Care Team Providers Care Transformation Architect Name Role Phone Unavailable Primary Care Provider Unavailabl e Encounter Details Date Type Department Care Team (Late st Contact Info) Description 05/12/2000 Outpatient Historical HIS [facility] Scotty Dupree MD [address] [phone] Incisional hernia (Primary Dx) Social History Tobacco Use Types Packs/Day Years Used Date Smoking Tobacco: Never Assessed Comments Unknown Sex and Gender Information Value Date Recorded Sex Assigned at Not on file Legal 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
--- OUTSIDE RECORDS SUMMARY | 2024-08-18 07:24 | XMS_ITS | Encounter Summary ---
Author Organization [facility] Address [address] [place] [address] Care Team Providers Care Sugar Reprocess Operator Head Name Role Phone Unavailable Primary Care Provider Unavailabl e Encounter Details Date Type Department Care Team (Late st Contact Info) Description 07/21/2000 Outpatient Historical HIS [facility] Leai, Scotty Valladares MD [address] [phone] Follow-up examination, following unspecified surgery (Primary Dx) Social History Tobacco Use Types Packs/Day Years Used Date Smoking Tobacco: Never Assessed Comments Unknown Sex and Gender Information Value Date Recorded Sex Assigned at Not on file 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
[2024-08-18] MEDS: dextrose 5%-ns + KCl 20 20 MEQ/1,000 ML BAG 75 MEQ IV (11:12)
--- NOTE | 2024-08-18 11:12 | PC.NURSE ---
cardiac monitoring placed on pt d/t KCl infusion
--- NOTE | 2024-08-18 11:45 | PC.NURSE ---
Admitted to ICU room 7 from ER. No reports of pain or discomfort. V/S stable. Dr. Virk to bedside to speak with patient and . Decision made to follow patients wishes and place patient on comfort care and Hospice care. Husseinnoy Angela notified.
[2024-08-18] MEDS: ondansetron 2 mg/ML SDV 2 mL 4 MG IVP (15:03)
--- NOTE | 2024-08-18 16:31 | P.PN_ITS ---
Subjective Subjective: Admitted overnight. H&P and labs appreciated. Patient seen with spouse at bedside. Patient laying in bed, arousable but mostly moving in bed by herself seems uncomfortable. Later in the day started having vomiting. Not on nicardipine drip currently. Hemodynamically stable. On room air. Vitals/I&O/Wt Last Vital Signs Temp 97.7 F 08/18/24 11:45 Pulse 67 08/18/24 13:16 Resp 17 08/18/24 13:16 BP 131/65 08/18/24 12:00 Pulse Ox 97 08/18/24 13:16 O2 Del Method Room Air 08/18/24 13:16 O2 Flow Rate 2 08/18/24 03:45 08/18/24 08/18/24 08/18/24 06:59 14:59 22:59 Intake Total 181.666 / 181.666 161.667 / 161.667 Balance 181.666 / 181.666 161.667 / 161.667 Weight last 48 hrs Weight 60 kg Weight 60.781 kg Physical Exam Narrative: General: Sleeping, arousable, not alert HEENT: PERRLA, pupils bilaterally equal and reactive Chest: Normal vesicular breath sounds, no added sounds, equal good air entry bilaterally CVS: S1-S2 regular, no murmurs, no tachycardia, no gallops, no rubs Abdomen: Soft, nontender, no organomegaly, bowel sounds present Neuro: No focal deficits, no facial deformity, moving all limbs A&P Assessment and plan (1) Ruptured aneurysm of intracranial artery: (2) Subarachnoid bleed: As above (3) Brain aneurysm: As above no intervention for now (4) Hypertension: Plan 58-year-old female with history of intracranial aneurysm post clipping x 2 pre sented to the ER overnight with headache found to have diffuse subarachnoid hemorrhage. Patient seen with at bedside. Had detailed goals of care discussion with . He states patient had declined transfer to tertiary center and had requested no further invasive surgeries. He states even on last time when she had her aneurysm clips she had fourth declined but family had made a decision to go ahead with the procedure once patient had became somnolent but this time they would want to respect her wishes. We discussed long-term with subarachnoid hemorrhage with the possibility she wo uld not be able to get back to her baseline health and her being sleepy, not arousable could be her new baseline. We discussed that we can try to maintain her blood pressure to IV medications for now but long-term it might not help as her mentation might not improve without any surgical corrections given the significant hemorrhage. We discussed given the goals patient had set for herself we can try to arrange hospice for the patient in which she would be kept comfortable while nature takes its own course which would even mean her . verbalizes understanding and wants to go ahead and set up hospice for the patient. Case management alerted. Comfort care orders placed. No further blood work. Vitals as per protocol. Protonix, Zofran as needed. Continue with IV fluid to finish 1 bag. PDMP PDMP Reviewed: Not Reviewed Attestations Medical Necessity Statement*: Requires further hospitalization while hospice is set up for patient admitted with concerns for diffuse subarachnoid hemorrhage in a patient with history of aneurysm Diagnoses Ruptured aneurysm of intracranial artery I60.7 Subarachnoid bleed I60.9 Brain aneurysm I67.1 Essential hypertension I10 Hypertension type: essential hypertension
[2024-08-18] MEDS: LORazepam 1 MG/0.5 ML injection IVP (22:50)
[2024-08-19] VITALS: PULSE 59; RESP 18; O2SAT 96
[2024-08-19 02:00] VITALS: PULSE 61; RESP 15; O2SAT 98
[2024-08-19 04:00] VITALS: PULSE 64; RESP 24; O2SAT 98
[2024-08-19 05:53] VITALS: PULSE 63
[2024-08-19] MEDS: morphine 10 mg/0.5 mL oral liq UD SUBLINGUAL ×3 (07:29→11:25)
[2024-08-19 08:00] VITALS: BP 146/70; PULSE 63; RESP 18; TEMP 36.7; O2SAT 96
--- NOTE | 2024-08-19 10:16 | P.DS_ITS ---
Discharge Providers Date of Admission: 08/18/24 04:36 Date of Discharge: August 19, 2024 Attending Provider at Admission: Isaac Fontaine MD Attending Provider at Discharge: Win Virk MD Primary Care Provider: KIRSTIN Graham Diagnoses at Discharge Discharge Diagnosis (1) Ruptured aneurysm of intracranial artery: Status: Acute (2) Subarachnoid bleed: Status: Acute (3) Brain aneurysm: Status: Acute Permanent problem details: 2 surgeries clips placed 2001 and 2011 (4) Hypertension: Status: Acute Qualifiers: Hypertension type: essential hypertension Qualified Code(s): I10 - Essential (primary) hypertension Reason for Visit Reason for Visit: Headache Brief History: History as per HPI Em Cleveland is a 58 year old female with history of subarachnoid bleed 1989 treated with aneurysm clipping and then here 1999 also treated with aneurysm clipping comes in with headache starting 9 days ago on Wednesday. She was seen 08/09/[address] of the head showing past aneurysm clip in the left PICA territory vertebral artery and left MCA. She had postoperative changes of left occipital craniectomy and left temporal craniotomy without acute stroke. Patient had headaches worsened today with associated left eye droop. CT shows diffuse subarachnoid hemorrhage today predominantly in the basal cisterns. Patient declined transfer for aneurysm clipping. Jl and daughter Josey who is an RN on an NPU unit and also works in [employer] and the emergency department confirmed that patient stated she did not want to trans soumya for aneurysm clipping or coiling. Patient does not want to go even if symptoms worsen and also that she does not want to have CPR. Patient is on a nicardipine drip at 6 and systolic blood pressure running 108- 115. We lowered it to 5 and blood pressure now systolic 130. The patient received Dilaudid and now is somnolent. She arouses and converses but somewhat confused and falls back to sleep. I woke her up 3 times which she kept going to back to sleep. . Hospital Course Hospital Course [facility] and [facility]. Patient refused to be transferred to tertiary center for further management with neurosurgeon. Had detailed goals of care discussion with . He states patient had declined transfer to tertiary center and had requested no further invasive surgeries. He states even on last time when she had her aneurysm clips she had fourth declined but family had made a decision to go ahead with the procedure once patient had became somnolent but this time they would want to respect her wishes. We discussed long-term with subarachnoid hemorrhage with the possibility she would not be able to get back to her baseline health and her being sleepy, not arousable could be her new baseline. We discussed that we can try to maintain her blood pressure to IV medications for now but long-term it might not help as her mentation might not improve without any surgical corrections given the significant hemorrhage. We discussed given the goals patient had set for herself we can try to arrange hospice for the patient in which she would be kept comfortable while nature takes its own course which would even mean her . verbalizes understanding and wants to go ahead and set up hospice for the patient. Goals of care were also discussed in detail with patient at bedside and she wanted for hospice to be set up. She has been discharged in stable condition with home hospice. Physical Exam Narrative: General: No acute distress, AO x 3 HEENT: PERRLA, pupils bilaterally equal and reactive Chest: Normal vesicular breath sounds, no added sounds, equal good air entry bilaterally CVS: S1-S2 regular, no murmurs, no tachycardia, no gallops, no rubs Abdomen: Soft, nontender, no organomegaly, bowel sounds present Neuro: No focal deficits, no facial deformity, moving all limbs Discharge Data Studies Completed and Pending Completed Studies During Hospitalization Category Date Time Status CT head wo con* [id number] Stat Cat Scan 08/18/24 02:26 Completed Radiology Impressions Head CT 08/18/24 02:26 IMPRESSION: 1. Diffuse subarachnoid hemorrhage, predominantly in basal cisterns. Findings may be secondary to ruptured aneurysm. 2. Mild prominence of the lateral and 3rd ventricles. ADDENDUM: 08/18/24 0255 THIS REPORT CONTAINS FINDINGS THAT MAY BE CRITICAL TO PATIENT CARE. The findings were verbally communicated via telephone conference with Dr Chacko at 253 AM CHILD PROTECTION SPECIALIST on 08/18/2024. The findings were acknowledged and understood. Vitals Last Vital Signs Temp 98.1 F 08/19/24 08:00 Pulse 63 08/19/24 08:00 Resp 18 08/19/24 08:00 BP 146/70 08/19/24 08:00 Pulse Ox 96 08/19/24 08:00 O2 Del Method Room Air 08/19/24 08:00 O2 Flow Rate 2 08/18/24 03:45 Discharge Plan Discharge Patient Disposition: Hospice - Home Condition: Serious Prescriptions: New amlodipine 5 mg tablet 5 mg PO DAILY Qty: 30 0RF Continued acetaminophen [Tylenol] 325 mg tablet 325 mg PO QID PRN (Reason: Pain) triamcinolone acetonide 0.1 % cream 1 applic topical BID 14 Days Qty: 80 0RF morphine concentrate 100 mg/5 mL (20 mg/mL) solution 20 mg sublingual DIRECTED PRN (Reason: Pain/SOB) 14 Days Qty: 30 0RF Rx Instructions: 0.25ml-1ml q1H PRN may increase to 0.5ml-1ml Q1H PRN bisacodyl 10 mg suppository 10 mg UT DAILY PRN (Reason: constipation) Qty: 5 0RF Rx Instructions: 1 suppository per rectum every day PRN for constipation. diphenhydramine HCl 25 mg tablet 25 mg PO Q4H Qty: 5 0RF Rx Instructions: Take one tablet by mouth every 4 hours as needed for allergic reaction including: Rash and/or Itching hydroxyzine HCl 25 mg tablet 25 mg PO TID PRN (Reason: Itching) Qty: 5 0RF Rx Instructions: Take 1 table by mouth as needed three times a day for itching atropine 1 % drops 4 drp sublingual Q4H PRN (Reason: secretions) Qty: 5 0RF Rx Instructions: 4 drops SL q 4 hours PRN for terminal congestion/excessive secretions. ondansetron 4 mg tablet,disintegrating 4 mg translingual Q4H PRN (Reason: nausea) Qty: 5 0RF Rx Instructions: Dissolve 1 tablet under tongue every 4 hours PRN for nausea lorazepam 2 mg/mL concentrate 2 mg sublingual Q4H PRN (Reason: Anxiety/Seizure) Qty: 30 0RF Rx Instructions: 0.25ml-1ml q4H PRN Anxiety/Seizure Start 0.25ml may increase to 0.5ml-1ml q4H Discontinued hydrochlorothiazide 25 mg tablet 25 mg PO DAILY Qty: 90 3RF Discharge Orders: Discharge Order (Routine); Ordered 08/19/24 Ordered By: Win Virk Referrals: Ivet Cunningham FNP-C [Primary Care Provider, Family Practice] Discharge Diet: Usual diet Discharge Activity: Resume usual activity Patient Instructions: Amlodipine (By mouth) (Hypertenipine-2.5, Norvasc, Norliqva), Opioid Safety, Patient Portal & Nasra Instructions Discharge Attestations Time Spent in Discharge Care*: greater than 30 min Specific Discharge Activities: educating patient, educating and/or supporting family/caregiver, discussing with pcp/other providers, discussing with family independence case manager/social workers/dc planners, documenting/other paperwork and evaluating patient/reviewing data Status at Discharge: Cognitive status at discharge: cognitively intact , Behavioral status at discharge: cooperative , Functional status at discharge: uses cane/walker , Overall status at discharge: patient is progressing back to baseline Quality Metrics Clinical Quality Measures [ No reported AMI, CVA or VTE this stay] Coding Level of Care Code 28554 Total time (in minutes) for Discharge: 65 Diagnoses Ruptured aneurysm of intracranial artery I60.7 Subarachnoid bleed I60.9 Brain aneurysm I67.1 Essential hypertension I10 Hypertension type: essential hypertension
[2024-08-19 11:12] VITALS: BP 132/91; PULSE 83; RESP 14; TEMP 36.6; O2SAT 99
--- NOTE | 2024-08-19 11:31 | PC.NURSE ---
Discharged home with family to Home Hospice.
== END 2024-08-19 11:30 | disposition hospice, home (50) | DRG 66 ==
LOC: ER 05:30 → ICU 06:10 → ER IP 07:19 → ICU 10:18
PROVIDERS: Admitting Provider Internal Medicine; Emergency Provider Student in an Organized Health Care Education/Training Program; PCP Nurse Practitioner Family; Visit Provider Student in an Organized Health Care Education/Training Program
DX: I60.4 Nontraumatic subarachnoid hemorrhage from basilar artery (principal); I10 Essential (primary) hypertension; Z66 Do not resuscitate; E78.5 Hyperlipidemia, unspecified; Z79.891 Long term (current) use of opiate analgesic; Z86.73 Personal history of transient ischemic attack (TIA), and cerebral infarction without residual deficits
CPT/HCPCS: 70450; 96365; 96366; 96367; 96375; 96376; 99285; J0780; J1171; J1200; J1953; J2060; J2404; J2405; J7030; J9999

== ENCOUNTER 2025-01-01 13:37 | Inpatient (IN) | payer MEDICARE, SELFPAY ==
[2025-01-01] VITALS (7 sets, daily range): BP systolic 124–144; BP diastolic 70–92; PULSE 83–95; RESP 15–20; TEMP 36.4–36.9; O2SAT 92–98; BMI 24.5
--- OUTSIDE RECORDS SUMMARY | 2025-01-01 13:42 | XMS_ITS | Clinical Summary ---
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
--- OUTSIDE RECORDS SUMMARY | 2025-01-01 13:42 | XMS_ITS | Encounter Summary ---
Author Organization [facility] Address [address] [place] [address] Care Team Providers Care Physician Practice Administrator Name Role Phone Unavailable Primary Care Provider Unavailabl e Encounter Details Date Type Department Care Team (Latest Contact Info) Description 05/12/2000 Outpatient Historical HIS [facility] Scotty Dupree MD [address] [phone] Incisional hernia (Primary Dx) Social History Tobacco Use Types Packs/Day Years Used Date Smoking Tobacco: Never Assessed Comments Unknown Sex and Gender Information Value Date Recorded Sex Assigned at Not on file 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
--- OUTSIDE RECORDS SUMMARY | 2025-01-01 13:42 | XMS_ITS | Encounter Summary ---
Author Organization [facility] Address [address] [place] [address] Care Team Providers Care Financial Aid Name Role Phone Unavailable Primary Care Provider Unavailabl e Encounter Details Date Type Department Care Team (Latest Contact Info) Description 07/21/2000 Outpatient Historical HIS [facility] Leia, Scotty Valladares MD [address] [phone] Follow-up examination, following unspecified surgery (Primary Dx) Social History Tobacco Use Types Packs/Day Years Used Date Smoking Tobacco: Never Assessed Comments Unknown Sex and Gender Information Value Date Recorded Sex Assigned at Not on file 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
--- OUTSIDE RECORDS SUMMARY | 2025-01-01 13:42 | XMS_ITS | Encounter Summary ---
Author Organization [employer] [facility] Address [address] [place] [address] Care Team Providers Care Epic Willow Analyst Name Role Phone Unavailable Primary Care Provider Unavailabl e Encounter Details Date Type Department Care Team (Latest Contact Info) Description 06/02/2000 Outpatient Historical HIS [facility] Scotty Dupree MD [address] [phone] Follow-up examination, following unspecified surgery (Primary Dx) Social History Tobacco Use Types Packs/Day Years Used Date Smoking Tobacco: Never Assessed Comments Unknown Sex and Gender Information Value Date Recorded Sex Assigned at Not on file 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
--- OUTSIDE RECORDS SUMMARY | 2025-01-01 13:42 | XMS_ITS | Encounter Summary ---
Author Organization [facility] Address [address] [place] [address] Care Team Providers Care Offset Press Operator Helper Name Role Phone Unavailable Primary Care Provider Unavailabl e Encounter Details Date Type Department Care Team (Latest Contact Info) Description 10/06/[address] 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
--- OUTSIDE RECORDS SUMMARY | 2025-01-01 13:42 | XMS_ITS | Encounter Summary ---
Author Organization [facility] Address [address] [place] [address] Care Team Providers Care Surgical Pathologist Name Role Phone Unavailable Primary Care Provider Unavailabl e Encounter Details Date Type Department Care Team (Latest Contact Info) Description 12/14/2001 Outpatient Historical HIS [facility] Leia, Scotty Valladares MD [address] [phone] SURGERY FOLLOWUP, UNSPEC (Primary Dx) Social History Tobacco Use Types Packs/Day Years Used Date Smoking Tobacco: Never Assessed Comments Unknown Sex and Gender Information Value Date Recorded Sex Assigned at Not on file Legal Sex Female 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
--- NOTE | 2025-01-01 13:44 | XR_ITS ---
WS: [id number] Exam: XR hip RT 2-3V wo/w pel* [id number] Date/Time of Exam: 01/01/2025 2:07 PM Reason For Exam: hip pain There is an intertrochanteric fracture of the RIGHT hip with coxa vera deformity. Mild DJD of the joint compartment. The pelvis is intact. AP view of the LEFT hip is unremarkable. IMPRESSION1. Intertrochanteric fracture of the RIGHT hip with coxa vera deformity.
--- NOTE | 2025-01-01 13:44 | XR_ITS ---
WS: [email or web address] Exam: XR chest 1V portable [id number] Date/Time of Exam: 01/01/2025 2:07 PM Reason For Exam: dizziness Comparison 08/28/2017. The lungs are fully expanded. No acute infiltrates are noted. Chronic interstitial changes noted bilaterally. Unremarkable cardiomediastinal silhouette. Bony structures are intact. XR/XR chest 1V portable [id number] IMPRESSION: 1. Chronic interstitial and reticular nodular changes throughout both lungs. No acute process.
--- NOTE | 2025-01-01 13:44 | ECG_ITS ---
[employer] Test Date: 2025-01-01 Pat Name: Em Cleveland Department: Room: Gender: Female Pest Locator: : 1965 Requested By: Prema Smith Order Number: [id number] Ochoa MD: Pacheco Holbrook M.D. Measurements Intervals [place] Rate: 77 P: 63 ND: 192 QRS: -6 QRSD: 80 T: 49 QT: 360 QTc: 408 Interpretive Statements SINUS RHYTHM WITH SINUS ARRHYTHMIA NONSPECIFIC ST & T-WAVE ABNORMALITY Compared to ECG 08/09/2024 12:00:40 T-wave abnormality now present ST (T wave) deviation no longer present Electronically Signed On 01-01-2025 18:10:55 LOOKBACK COORDINATOR by Pacheco Holbrook M.D. [email or web address]
--- NOTE | 2025-01-01 13:50 | PC.PHAR ---
Pt uses [facility] at home Hospice. Medication list was faxed.
--- NOTE | 2025-01-01 14:09 | W.ED.EXTPRO ---
HPI - Extremity Problem General: Chief complaint: Extremity Injury, Lower Stated complaint: dizzy - fall, right hip pain Time Seen by Provider: 01/01/25 13:43 History of Present Illness: 59-year-old female with a history of multiple cerebral aneurysms with clips in 2001, 2011 and again a few months ago for which she is now on hospice although she has had a massive recovery from this that was not expected, chronic hypertension, hyperlipidemia, and migraines who presents to the emergency room after she had a fall. She says she felt dizzy which is not uncommon and lost her balance and fell down. She has right hip pain. This is quite severe. She has her leg flexed at this time at the knee and will not straighten it out. Any sort of movement hurts in her hip. But I cannot tell through any obvious shortening or rotation. No head injury. No anticoagulation. No altered mental status. No chest pain. No abdominal pain. Related Data Home Medications ?Medication ?Instructions ?Recorded ?Confirmed acetaminophen 325 mg tablet 325 mg PO QID PRN Pain 04/22/20 01/01/25 (Tylenol) diphenhydramine HCl 25 mg tablet See Rx Instructions .Route .COMPLEX 01/01/25 01/01/25 hydrochlorothiazide 25 mg tablet 25 mg PO DAILY 01/01/25 01/01/25 lidocaine 5 % topical patch See Rx Instructions .Route .COMPLEX 01/01/25 01/01/25 lorazepam 2 mg/mL oral concentrate See Rx Instructions .Route 01/01/25 01/01/25 .COMPLEX PRN Anxiety/Seizure meclizine 25 mg chewable tablet 50 mg PO DAILY PRN nausea/vomiting 01/01/25 01/01/25 (Bonine) morphine 30 mg tablet,extended 30 mg PO DAILY pain 01/01/25 01/01/25 release (MS Contin) morphine concentrate 100 mg/5 mL See Rx Instructions .Route .COMPLEX 01/01/25 01/01/25 (20 mg/mL) oral solution sennosides 8.6 mg-docusate sodium 1 tab PO BID 01/01/25 01/01/25 50 mg tablet (Stimulant Laxative Plus) Previous Rx's ?Medication ?Instructions ?Recorded triamcinolone acetonide 0.1 % 1 applic topical BID 14 days #80 08/09/24 topical cream grams atropine 1 % eye drops 4 drp sublingual Q4H PRN 08/18/24 secretions #5 mL bisacodyl 10 mg rectal suppository 10 mg MA DAILY PRN constipation #5 08/18/24 ea hydrocodone 7.5 mg-acetaminophen 1 tab PO TID PRN pain 15 days #45 08/28/24 325 mg tablet tabs hydroxyzine HCl 25 mg tablet 25 mg PO TID PRN Itching 30 days 10/25/24 #30 tabs amlodipine 5 mg tablet 5 mg PO DAILY #30 tabs 12/18/24 clotrimazole 1 % topical cream 1 applic topical BID 4 weeks #30 12/20/24 (Lotrimin AF (clotrimazole)) grams ondansetron 4 mg disintegrating 4 mg translingual Q4H PRN nausea 12/27/24 tablet #30 tabs Allergies Allergy/AdvReac Type Severity Reaction Status Date / Time Iodinated Contrast Media Allergy rash Verified 08/19/23 10:36 ketorolac (From Toradol) Allergy Unknown Verified 08/19/23 10:12 Review of Systems Narrative: Constitutional symptoms: Negative except as documented in HPI. Skin symptoms: Negative except as documented in HPI. Eye symptoms: Negative except as documented in HPI. ENMT symptoms: Negative except as documented in HPI. Respiratory symptoms: Negative except as documented in HPI. Cardiovascular symptoms: Negative except as documented in HPI. Gastrointestinal symptoms: Negative except as documented in HPI. Genitourinary symptoms: Negative except as documented in HPI. Musculoskeletal symptoms: Negative except as documented in HPI. Neurologic symptoms: Negative except as documented in HPI. Psychiatric symptoms: Negative except as documented in HPI. Endocrine symptoms: Negative except as documented in HPI. PFSH ED PFSH: Medical History (Updated 01/01/25 @ 15:50 by Prema Umanzor MD) Brain aneurysm 2 surgeries clips placed 2001 and 2011 Hypertension Stroke Thoracic aortic aneurysm Hyperlipidemia Surgical History History of hysterectomy Family History Other Cancer Diabetes Hypertension Social History (Updated 08/18/24 @ 05:40 by Isaac Fontaine MD) Smoking and tobacco/nicotine status: current every day tobacco/nicotine user Alcohol intake: current Alcohol intake frequency: holidays/special occasions only Additional social history: Patient is accompanied by her daughter Josey and Jl. CODE STATUS discussed this morning by Dr. Chacko and myself with patient and family confirmed to be DNR on 08/18/2024 Household members: spouse Marital status: Physical Exam Narrative: EXAM NARRATIVE: General: Alert, no acute distress. Skin: Warm, dry. Head: Normocephalic, atraumatic. Neck: Supple, trachea midline. Eye: Extraocular movements are intact. Ears, nose, mouth and throat: mucosa moist. Cardiovascular: Regular, Normal peripheral perfusion. Respiratory: Lungs are clear to auscultation, respirations are non-labored, breath sounds are equal, Symmetrical chest wall expansion. Gastrointestinal: Soft, Nontender, Non distended Musculoskeletal: Leg flexed at the knee. Severe pain in the hip with any movement. Neurological: Alert and oriented, No focal neurological deficit observed. Psychiatric: Cooperative, appropriate mood & affect. Course Vital Signs: Vital signs: Vital Signs Temperature 98.4 F 01/01/25 13:39 Pulse Rate 83 01/01/25 13:39 Respiratory Rate 18 01/01/25 13:39 Blood Pressure 133/92 01/01/25 13:39 Pulse Oximetry 98 01/01/25 13:39 MDM - Extremity (Nontraumatic) Medical Decision Making Medical decision making: Patient's reason for coming to the emergency room: Fall and hip pain Social determinants: Patient is on hospice for a fairly recent intracranial hemorrhage. However she has recovered much better than initially expected I reviewed the patient's medical record. 59-year-old female with a history of multiple cerebral aneurysms with clips in 2001, 2011 and again a few months ago for which she is now on hospice although she has had a massive recovery from this that was not expected, chronic hypertension, hyperlipidemia, and migraines I reviewed the patient's current home meds Patient is not on any anticoagulation. She is on extended release morphine which made controlling her pain quite difficult. Differential diagnosis for patient with fall and hip pain with deformity including but not limited to and based on the above HPI, review of systems and physical exam: Hip fracture, femur fracture, pelvic fractures including pubic rami and acetabular fractures, hip strain, hip contusion. - Hip films ordered to evaluate above. - also presurgical work up done. EKG, Chest xray and lab work Lab Review: Laboratory results were reviewed and interpreted by myself the emergency room physician. Mild leukocytosis. No renal failure. No anemia. EKG: Normal sinus rhythm, No ST-T changes, no ectopy, normal MA & QRS intervals, This was reviewed and interpreted by myself the ER physician at 1400 Assessment of risk: Level of risk: High risk patient. History of multiple head bleeds and difficult to control blood pressure. Multiple comorbidities. Hospitalization considerations: Reexamination: Patient remained stable. No increased work of breathing. No altered mental status. No focal motor deficits. Pain was a bit difficult to control. Consultation: I spoke with Dr. Alvarado who is on-call for orthopedics who agrees to consultation and plans on surgery Consultation: I spoke with Dr. Gao who is on-call for the hospitalist service who agrees to admission Assessment and plan: Hip fracture Fall from standing ?Morphine, then Dilaudid for pain. Multiple doses of Zofran for nausea. -I discussed the patient with the hospitalist on-call who is admitting the patient. - Discussed findings and plan with patient. Answered any questions. - All laboratory values were reviewed and interpreted personally by myself, the ER physician - All imaging was reviewed and interpreted personally by myself, the ER physician. - Evaluation and treatment of this problem were appropriate in the emergency setting Lab Data 01/01/25 15:00 01/01/25 15:00 Radiology Impressions Chest X-Ray 01/01/25 13:44 IMPRESSION: 1. Chronic interstitial and reticular nodular changes throughout both lungs. No acute process. Laboratory Results WBC 12.06 10^3/uL (3.29-11.43) H 01/01/25 15:00 RBC 4.01 10^6/uL (3.85-5.65) 01/01/25 15:00 Hgb 12.60 g/dL (11.27-16.99) 01/01/25 15:00 Hct 37.5 % (36-47) 01/01/25 15:00 MCV 93.5 fl (85-98) 01/01/25 15:00 MCH 31.4 pg (27-33) 01/01/25 15:00 MCHC 33.6 g/dL (30-55) 01/01/25 15:00 RDW 13.2 % (12.1-15.1) 01/01/25 15:00 Plt Count 237 10^3/cmm (157-399) 01/01/25 15:00 MPV 9.9 fL (7.4-10.4) 01/01/25 15:00 Neut % (Auto) 73.4 % 01/01/25 15:00 Lymph % (Auto) 21.5 % 01/01/25 15:00 Harney % (Auto) 4.3 % 01/01/25 15:00 Eos % (Auto) 0.3 % 01/01/25 15:00 Baso % (Auto) 0.2 % 01/01/25 15:00 Neut # (Auto) 8.84 10^3/uL (1.8-7.7) H 01/01/25 15:00 Lymph # (Auto) 2.6 10^3/uL (0.8-4.8) 01/01/25 15:00 Harney # (Auto) 0.5 10^3/uL (0.2-0.9) 01/01/25 15:00 Eos # (Auto) 0.0 10^3/uL (0.0-0.8) 01/01/25 15:00 Baso # (Auto) 0.0 10^3/uL (0.0-0.1) 01/01/25 15:00 Nucleated RBC % (auto) 0 % 01/01/25 15:00 Nucleated RBCs # 0.0 /100WBC 01/01/25 15:00 PT 13.50 SECONDS (12.1-14.9) 01/01/25 15:00 INR 0.97 (0.8-1.2) 01/01/25 15:00 APTT 28.7 SECONDS (23.9-36.7) 01/01/25 15:00 Sodium 137 mmol/L (136-145) 01/01/25 15:00 Potassium 3.9 mmol/L (3.5-5.1) 01/01/25 15:00 Chloride 102 mmol/L (98-107) 01/01/25 15:00 Carbon Dioxide 21 mmol/L (22-29) L 01/01/25 15:00 Anion Gap 17.9 (5-19) 01/01/25 15:00 BUN 7 mg/dL (8-23) L 01/01/25 15:00 Creatinine 0.4 mg/dL (0.5-0.9) L 01/01/25 15:00 GFR Calculation 162.3 mL/min (90-130) H 01/01/25 15:00 Glucose 122 mg/dL (65-115) H 01/01/25 15:00 Calculated Osmolality 283 mOsm/kg (285-295) L 01/01/25 15:00 Calcium 9.0 mg/dL (8.5-10.5) 01/01/25 15:00 Total Bilirubin 0.2 mg/dL (0.15-1.2) 01/01/25 15:00 AST 33 U/L (0-32) H 01/01/25 15:00 ALT 23 U/L (0-33) 01/01/25 15:00 Alkaline Phosphatase 107 U/L (35-105) H 01/01/25 15:00 Total Protein 7.0 g/dL (6.6-8.7) 01/01/25 15:00 Albumin 4.0 g/dL (3.5-5.2) 01/01/25 15:00 Globulin 3.0 g/dL (1.3-4.6) 01/01/25 15:00 All radiology interpretation(s) finalized by discharge Discharge Plan Discharge Patient Disposition: Admitted As Inpatient Clinical Impression: Hip fracture, Fall from standing Condition: Stable Coding Level of Care Code ED Monkey Breeder for Maureen Hurley
[2025-01-01] MEDS: morphine 4 mg/mL SDV 1 mL IVP ×2 (14:29→19:57)
[2025-01-01] MEDS: ondansetron 2 mg/ML SDV 2 mL 4 MG IVP (14:29)
[2025-01-01] MEDS: ondansetron 2 mg/ML SDV 2 mL 8 MG IVP (14:57)
[2025-01-01 15:09] LABS: Hematocrit 37.5 % (36-47); Hemoglobin 12.60 g/dL (11.27-16.99); Mean Corpuscular HGB Conc 33.6 g/dL (30-55); Mean Corpuscular Hemoglobin 31.4 pg (27-33); Mean Corpuscular Volume 93.5 fl (85-98); Nucleated Red Blood Cells % 0 %; Platelet Count 237 10^3/cmm (157-399); Red Blood Count 4.01 10^6/uL (3.85-5.65); White Blood Count 12.06 10^3/uL (3.29-11.43)
[2025-01-01] MEDS: HYDROmorphone 0.5 MG/0.5 ML INJ 1 MG IVP ×2 (15:23→21:22)
[2025-01-01 15:24] LABS: INR 0.97 (0.8-1.2); Prothrombin Time 13.50 SECONDS (12.1-14.9)
[2025-01-01 15:25] LABS: Partial Thromboplastin Time 28.7 SECONDS (23.9-36.7)
[2025-01-01 15:27] LABS: Alanine Aminotransferase 23 U/L (0-33); Albumin Level 4.0 g/dL (3.5-5.2); Alkaline Phosphatase 107 U/L (35-105); Aspartate Amino Transferase 33 U/L (0-32); Blood Urea Nitrogen 7 mg/dL (8-23); Calcium 9.0 mg/dL (8.5-10.5); Carbon Dioxide 21 mmol/L (22-29); Chloride 102 mmol/L (98-107); Globulin 3.0 g/dL (1.3-4.6); Glucose 122 mg/dL (65-115); Osmolality Calculated 283 mOsm/kg (285-295); Sodium 137 mmol/L (136-145); Total Protein 7.0 g/dL (6.6-8.7)
[2025-01-01 15:29] LABS: Anion Gap 17.9 (5-19); Potassium 3.9 mmol/L (3.5-5.1)
[2025-01-01] MEDS: orphenadrine 30 mg/mL Inj 2 mL 60 MG IVP (16:14)
--- NOTE | 2025-01-01 16:26 | PM.HP ---
Providers/Chief Complaint Admitting Physician: Danny Dacosta MD, MPH Primary Care Provider: MOISE Tiwari Chief Complaint: dizzy - fall, right hip pain History of Present Illness Em Cleveland is a 59 year old female who presented to the ER after she was brought by family after she reports a mechanical fall at home. Thereafter, she reports severe pain in the right hip, and therefore unable to stand up and move. Consequently, she came to the ER for further evaluation. She clarifies her fall was mechanical, having tripped on something on the floor. She denies any preceding episode/symptom of dizziness, headache, chest pain, diaphoresis, palpitation. Upon getting to the ER, she was found to have right intertrochanteri hip fracture on the right, and therefore recommended for admission. Orthopedic surgeon had already been consulted, waiting to see patient. Patient reports recent history of brain aneurysm, for which she has been on hospice. She reports canceling the hospice status at this time, and clearly expresses interest in getting her right hip fixed. She also complains of associated muscle spasm in the lateral right hip. She denies any any other symptoms. Review of Systems Narrative: 10 point review of system done, and essentially negative, except as in HPI. Medications/Allergies Home Medications ?Medication ?Instructions ?Recorded ?Confirmed ?Last Taken ?Type acetaminophen 325 mg tablet 325 mg PO QID PRN Pain 04/22/20 01/01/25 Unknown History (Tylenol) triamcinolone acetonide 0.1 % 1 applic topical BID 14 days #80 08/09/24 01/01/25 08/17/24 Rx topical cream grams atropine 1 % eye drops 4 drp sublingual Q4H PRN 08/18/24 01/01/25 Unknown Rx secretions #5 mL bisacodyl 10 mg rectal suppository 10 mg HI DAILY PRN constipation #5 08/18/24 01/01/25 Unknown Rx ea hydrocodone 7.5 mg-acetaminophen 1 tab PO TID PRN pain 15 days #45 08/28/24 01/01/25 Unknown Rx 325 mg tablet tabs hydroxyzine HCl 25 mg tablet 25 mg PO TID PRN Itching 30 days 10/25/24 01/01/25 Unknown Rx #30 tabs amlodipine 5 mg tablet 5 mg PO DAILY #30 tabs 12/18/24 01/01/25 Unknown Rx clotrimazole 1 % topical cream 1 applic topical BID 4 weeks #30 12/20/24 01/01/25 Unknown Rx (Lotrimin AF (clotrimazole)) grams ondansetron 4 mg disintegrating 4 mg translingual Q4H PRN nausea 12/27/24 01/01/25 Unknown Rx tablet #30 tabs diphenhydramine HCl 25 mg tablet See Rx Instructions .Route .COMPLEX 01/01/25 01/01/25 Unknown History hydrochlorothiazide 25 mg tablet 25 mg PO DAILY 01/01/25 01/01/25 Unknown History lidocaine 5 % topical patch See Rx Instructions .Route .COMPLEX 01/01/25 01/01/25 Unknown History lorazepam 2 mg/mL oral concentrate See Rx Instructions .Route 01/01/25 01/01/25 Unknown History .COMPLEX PRN Anxiety/Seizure meclizine 25 mg chewable tablet 50 mg PO DAILY PRN nausea/vomiting 01/01/25 01/01/25 Unknown History (Bonine) morphine 30 mg tablet,extended 30 mg PO DAILY pain 01/01/25 01/01/25 Unknown History release (MS Contin) morphine concentrate 100 mg/5 mL See Rx Instructions .Route .COMPLEX 01/01/25 01/01/25 Unknown History (20 mg/mL) oral solution sennosides 8.6 mg-docusate sodium 1 tab PO BID 01/01/25 01/01/25 Unknown History 50 mg tablet (Stimulant Laxative Plus) Allergies Allergy/AdvReac Type Severity Reaction Status Date / Time Iodinated Contrast Media Allergy rash Verified 08/19/23 10:36 ketorolac (From Toradol) Allergy Unknown Verified 08/19/23 10:12 PFSH Acute PFSH: Medical History Ruptured aneurysm of intracranial artery Brain aneurysm 2 surgeries clips placed 2001 and 2011 Hypertension Stroke Thoracic aortic aneurysm Hyperlipidemia, unspecified hyperlipidemia type Surgical History History of hysterectomy Family History Other Cancer Diabetes Hypertension Social History Smoking and tobacco/nicotine status: current every day tobacco/nicotine user Alcohol intake: current Alcohol intake frequency: holidays/special occasions only Additional social history: Patient is accompanied by her daughter Josey and Jl. CODE STATUS discussed this morning by Dr. Chacko and myself with patient and family confirmed to be DNR on 08/18/2024 Household members: spouse Marital status: Vitals/I&O/Wt Last Vital Signs Temp 98.4 F 01/01/25 13:39 Pulse 85 01/01/25 16:22 Resp 18 01/01/25 13:39 BP 134/84 01/01/25 16:22 Pulse Ox 96 01/01/25 16:22 Weight last 48 hrs Weight 68.039 kg Physical Exam Const: COMMON NORMALS: no acute distress, patient oriented x3 and alert Resp: COMMON NORMALS: normal respiratory effort and No use of accessory muscles Cardio: COMMON NORMALS: no JVD, regular rate, regular rhythm, S1 normal heart sound present and S2 normal heart sound present GI: COMMON NORMALS: Normal to inspection, nondistended, normoactive bowel sounds present Back/Pelvis: COMMON NORMALS: no CVA tenderness Extremity: COMMON NORMALS: capillary refill normal and no pedal edema OTHER: Right lower extremity moderately flexed. Passive movt very tender. Further exam deferred. Neuro: COMMON NORMALS: CN's II-XII intact bilaterally and no focal motor deficits Psych: COMMON NORMALS: mental status grossly normal, cooperative and normal affect Skin: COMMON NORMALS: no rashes or lesions noted, turgor normal and no jaundice Data 01/01/25 15:00 01/01/25 15:00 Other data: There is an intertrochanteric fracture of the RIGHT hip with coxa vera deformity. Mild DJD of the joint compartment. The pelvis is intact. AP view of the LEFT hip is unremarkable. IMPRESSION1. Intertrochanteric fracture of the RIGHT hip with coxa vera deformity . A&P Assessment and plan 1. Closed nondisplaced intertrochanteric fracture of right femur, initial encounter: 2. Primary hypertension: 3. Hyperlipidemia, unspecified hyperlipidemia type: Plan: 1. Closed nondisplaced contracted to treat fracture of the right hip: Admit patient to inpatient status. Call to symptoms empirically, otherwise. Consulting orthopedic surgery for further evaluation and treatment. 2. Resume patient's antihypertensive medications as well as she is stable. 3. History of brain aneurysm with sugrical clips: This is currently asymptomatic for months; therefore not very clinically significant at this time. I note the history of patient being on hospice care before the current admission. Patient no longer on hospice, of note. She desires surgical intervention for the hip fracture; this is fine with me. 4. Need for Surgical Clearance: Patient's risk of severe complications from surgery is significantly low. From a medical standpoint, she is risk-stratified to be low to moderate. Further plans to be deferred to the anaestesiology/surgical team. PDMP PDMP Reviewed: Not Reviewed Attestations Medical Necessity Statement*: Patient presented with a right hip fracture, with complicated medical history, which will require surgery, and further physical therapy, etc., which would be part of the postop treatment plans. She will require up to 2 midnights to get all this fixed. Coding Level of Care Code 73138 Diagnoses Closed nondisplaced intertrochanteric fracture of right femur, initial encounter S72.144A Encounter type: initial encounter Fracture alignment: nondisplaced Primary hypertension I10 Hypertension type: primary hypertension Hyperlipidemia, unspecified hyperlipidemia type E78.5 Hyperlipidemia type: unspecified
--- NOTE | 2025-01-01 17:51 | PM.CONSULT ---
Providers/Reason For Consult Consulting Physician/Specialty*: Sandeep Alvarado MD/orthopedic surgery Reason for Consult*: Right intertrochanteric hip fracture Attending Physician: Danny Dacosta MD Primary Care Provider: MOISE Tiwari History of Present Illness History of Present Illness Em Cleveland is a 59 year old female who tripped off of a curb today injuring her right hip. She has brought the [facility] emergency room where a x-rays demonstrate intertrochanteric hip fracture on the right. She is now been admitted through the hospital service for medical clearance and orthopedic consultation was obtained. After evaluation of the x-rays as well as discussion with the patient she does appear to have a right hip fracture. This is a intertrochanteric fracture and would require proximal trochanteric nail and fixation. All risks and benefits treatment alternatives were discussed with her and her family Review of Systems Narrative: 10 point review of system done, and essentially negative, except as in HPI. Medications/Allergies Home Medications ?Medication ?Instructions ?Recorded ?Confirmed ?Last Taken ?Type acetaminophen 325 mg tablet 325 mg PO QID PRN Pain 04/22/20 01/01/25 Unknown History (Tylenol) triamcinolone acetonide 0.1 % 1 applic topical BID 14 days #80 08/09/24 01/01/25 08/17/24 Rx topical cream grams atropine 1 % eye drops 4 drp sublingual Q4H PRN 08/18/24 01/01/25 Unknown Rx secretions #5 mL bisacodyl 10 mg rectal suppository 10 mg MD DAILY PRN constipation #5 08/18/24 01/01/25 Unknown Rx ea hydrocodone 7.5 mg-acetaminophen 1 tab PO TID PRN pain 15 days #45 08/28/24 01/01/25 Unknown Rx 325 mg tablet tabs hydroxyzine HCl 25 mg tablet 25 mg PO TID PRN Itching 30 days 10/25/24 01/01/25 Unknown Rx #30 tabs amlodipine 5 mg tablet 5 mg PO DAILY #30 tabs 12/18/24 01/01/25 Unknown Rx clotrimazole 1 % topical cream 1 applic topical BID 4 weeks #30 12/20/24 01/01/25 Unknown Rx (Lotrimin AF (clotrimazole)) grams ondansetron 4 mg disintegrating 4 mg translingual Q4H PRN nausea 12/27/24 01/01/25 Unknown Rx tablet #30 tabs diphenhydramine HCl 25 mg tablet See Rx Instructions .Route .COMPLEX 01/01/25 01/01/25 Unknown History hydrochlorothiazide 25 mg tablet 25 mg PO DAILY 01/01/25 01/01/25 Unknown History lidocaine 5 % topical patch See Rx Instructions .Route .COMPLEX 01/01/25 01/01/25 Unknown History lorazepam 2 mg/mL oral concentrate See Rx Instructions .Route 01/01/25 01/01/25 Unknown History .COMPLEX PRN Anxiety/Seizure meclizine 25 mg chewable tablet 50 mg PO DAILY PRN nausea/vomiting 01/01/25 01/01/25 Unknown History (Bonine) morphine 30 mg tablet,extended 30 mg PO DAILY pain 01/01/25 01/01/25 Unknown History release (MS Contin) morphine concentrate 100 mg/5 mL See Rx Instructions .Route .COMPLEX 01/01/25 01/01/25 Unknown History (20 mg/mL) oral solution sennosides 8.6 mg-docusate sodium 1 tab PO BID 01/01/25 01/01/25 Unknown History 50 mg tablet (Stimulant Laxative Plus) Allergies Allergy/AdvReac Type Severity Reaction Status Date / Time Iodinated Contrast Media Allergy rash Verified 08/19/23 10:36 ketorolac (From Toradol) Allergy Unknown Verified 08/19/23 10:12 PFSH Acute PFSH: Medical History Ruptured aneurysm of intracranial artery Brain aneurysm 2 surgeries clips placed 2001 and 2011 Hypertension Stroke Thoracic aortic aneurysm Hyperlipidemia, unspecified hyperlipidemia type Surgical History History of hysterectomy Family History Other Cancer Diabetes Hypertension Social History Smoking and tobacco/nicotine status: current every day tobacco/nicotine user Alcohol intake: current Alcohol intake frequency: holidays/special occasions only Additional social history: Patient is accompanied by her daughter Josey and Jl. CODE STATUS discussed this morning by Dr. Chacko and myself with patient and family confirmed to be DNR on 08/18/2024 Household members: spouse Marital status: Dietary Habits: Current diet type/program: regular Caffeine: Yes Vitals/I&O/Wt Last Vital Signs Temp 97.6 F 01/01/25 17:20 Pulse 84 01/01/25 17:20 Resp 17 01/01/25 17:20 BP 124/70 01/01/25 17:20 Pulse Ox 93 01/01/25 17:20 O2 Del Method Room Air 01/01/25 17:20 Weight last 48 hrs Weight 150 lb Physical Exam Narrative: On examination patient is laying in bed and is a moderate amount of distress. She has her hip slightly flexed and internally rotated. She is complaining of muscle spasms. She is pain with any manipulation of her hip. She is neurovasc intact distally Data 01/01/25 15:00 01/01/25 15:00 A&P Assessment and plan 1. Closed nondisplaced intertrochanteric fracture of right femur, initial encounter: Patient has a right intertrochanteric hip fracture. This will require surgical fixation for repair. Patient's had all aspects of the surgery discussed with her. All risk benefits treatment alternatives were discussed also. Questions have been answered of hers as well as of her family at this time. They are all in agreement for surgical intervention. Plan: Plan at this time is for close reduction with internal fixation of right intertrochanteric hip fracture tomorrow afternoon. PDMP PDMP Reviewed: Not Reviewed Consult Attestations Medical Necessity Statement: Patient in need of a pain control and surgical intervention for right hip fracture. Coding Level of Care Code Acute Code for Chg Fwd Diagnoses Closed nondisplaced intertrochanteric fracture of right femur, initial encounter S72.144A Encounter type: initial encounter Fracture alignment: nondisplaced
[2025-01-01] MEDS: HYDROcodone-acetaminophen 5-325 mg Tablet 1 TAB PO (17:54)
[2025-01-01 19:23] LABS: Glucose Urine UA Negative (Normal); Nitrate Urine Negative (Negative); Specific Gravity, Urine 1.014 (1.005-1.030)
[2025-01-02] VITALS (20 sets, daily range): BP systolic 121–173; BP diastolic 70–97; PULSE 79–101; RESP 15–18; TEMP 36.4–37.1; O2SAT 90–100
[2025-01-02] MEDS: HYDROcodone-acetaminophen 5-325 mg Tablet 1 TAB PO ×5 (00:35→22:08)
[2025-01-02] MEDS: HYDROmorphone 0.5 MG/0.5 ML INJ 1 MG IVP ×3 (04:59→13:15)
[2025-01-02] MEDS: ondansetron 2 mg/ML SDV 2 mL 4 MG IVP (05:05)
[2025-01-02 05:33] LABS: Hematocrit 35.8 % (36-47); Hemoglobin 11.80 g/dL (11.27-16.99); Mean Corpuscular HGB Conc 33.0 g/dL (30-55); Mean Corpuscular Hemoglobin 31.6 pg (27-33); Mean Corpuscular Volume 96.0 fl (85-98); Nucleated Red Blood Cells % 0 %; Platelet Count 223 10^3/cmm (157-399); Red Blood Count 3.73 10^6/uL (3.85-5.65); White Blood Count 8.09 10^3/uL (3.29-11.43)
[2025-01-02 05:50] LABS: Anion Gap 16.0 (5-19); Blood Urea Nitrogen 7 mg/dL (8-23); Calcium 9.0 mg/dL (8.5-10.5); Carbon Dioxide 25 mmol/L (22-29); Chloride 105 mmol/L (98-107); Glucose 106 mg/dL (65-115); Osmolality Calculated 292 mOsm/kg (285-295); Potassium 4.0 mmol/L (3.5-5.1); Sodium 142 mmol/L (136-145)
--- NOTE | 2025-01-02 08:51 | P.PN_ITS ---
Subjective 2 Subjective: Seen again in the company of family members, patient reports no new complaints. No issues currently awaiting further surgical evaluation and treatment by the orthopedic surgeon. She just reports poor/inadequate pain control. Her morphine was switched to Dilaudid last night. This is in addition to the scheduled Robaxin that she is getting. Vitals/I&O/Wt Last Vital Signs Temp 98.4 F 01/02/25 07:21 Pulse 85 01/02/25 07:21 Resp 17 01/02/25 07:21 BP 135/78 01/02/25 07:21 Pulse Ox 92 01/02/25 07:21 O2 Del Method Room Air 01/02/25 07:21 01/01/25 01/02/25 01/02/25 22:59 06:59 14:59 Intake Total 200 / 200 1000 / 1200 Output Total 1900 / 1900 Balance 200 / 200 -900 / -700 Weight last 48 hrs Weight 67.33 kg Weight 64.909 kg Weight 68.039 kg Physical Exam 2 Narrative: General: Awake and alert. No obvious respiratory distress. Neuro/Psych: Cooperative. Oriented x 3 MSK: Deferred at this time. GI: Soft and non-tender abdomen. Extremities: Bilateral equal pulses. No obvious pitting pedal edema. Urinary Catheter Management: Holguin: Cath Placed During This Visit: yes Reason for Continuing Indwelling Catheter: Required Immobilization for Trauma or Surgery or Anesthesia Urinary Catheter Date of Insertion: 01/01/25 Urinary Catheter Time of Insertion: 18:57 Data 01/02/25 04:50 01/02/25 04:50 A&P Assessment and plan 1. Closed nondisplaced intertrochanteric fracture of right femur, initial encounter: 2. Brain aneurysm: 3. Hypertension: 4. Hyperlipidemia, unspecified hyperlipidemia type: Plan: 1. Closed nondisplaced right femoral fracture: Otherwise stable. Defer to orthopedic surgery for follow-up based on this. 2. History of brain aneurysm patient with hypertension and hyperlipidemia: All stable. Resume patient's antihypertensive medications, as adjusted. Continue to monitor closely. PDMP PDMP Reviewed: Not Reviewed Attestations 2 Medical Necessity Statement*: Awaiting orthopedic surgery, to be followed up with physical therapy. Anticipate possible discharge tomorrow. Coding Level of Care Code Acute Code for Chg Fwd Diagnoses Closed nondisplaced intertrochanteric fracture of right femur, initial encounter S72.144A Encounter type: initial encounter Fracture alignment: nondisplaced Brain aneurysm I67.1 Hypertension I10 Hyperlipidemia, unspecified hyperlipidemia type E78.5 Hyperlipidemia type: unspecified
--- NOTE | 2025-01-02 10:05 | PC.CHAP ---
Pastoral Care Encounter/Spiritual Assessment Type of Contact [] Declined rink rat visit [] Patient/Family/Request visit [] Outpatient visit [] Follow-up visit [] Physician referral [] Code/Alert [x] Routine visit [] Staff referral [] Actively dying [] Patient sleeping [x] Family support [] [] Out of room [] Palliative care [] [] Receiving care in room [] Pre-surgical visit [] Trauma [] Long length of stay [] ICU visit [] Other: Relational/Emotional Strength [x] Patient feels connected with others/family/visitors/staff [] Distress [] Loneliness/isolation [] Abandonment Spirituality of Patient [x] Person of Luz Maria [] Attends Faith of their Luz Maria [x] Believes in Prayer [] Reads Bible or Synagogue materials [] There are Spiritual issues to be addressed Abalone Processor Interventions [x] Prayer [x] Active listening [] Non-anxious presence [x] Spiritual/emotional support [] Crisis/trauma care [] Spiritual counseling [] Bereavement support [] Provided bereavement packet [] Provided Bible/devotional materials [] Provided toy/stuffed animal, coloring book to patient or family member [] Provided Communion [] Anointing/[place] [] Salvation [x] Completed spiritual assessment [] Other: Impact on Illness or Injury [] Angry [] Fearful [] Anxious [] Often cries [] Exhaustion [] Unable to work [] Unable to attend yazidi [] Unable to walk/stand [] Unable to read [] Unable to drive [] Unable to eat/drink [] Unable to sleep [] Unable to be with family [] Patient intubated [] Other: Summary Time spent with patient 5 min
--- NOTE | 2025-01-02 14:46 | ANES.PREANE2 ---
Pre-Anesthetic Assessment Height/Weight: Height 1.63 m Weight 67.33 kg Temp Pulse Resp BP Pulse Ox O2 Del Method 97.9 F 91 18 138/82 92 Room Air 01/02/25 14:44 01/02/25 14:44 01/02/25 14:44 01/02/25 14:44 01/02/25 14:44 01/02/25 14:44 Operation Date: 01/02/25 15:20 Proposed Procedures p Closed Reduction Hip(Right) - Sandeep Alvarado MD s Hip Screw Insertion(Right) - Sandeep Alvarado MD Familial anesthetic complications: None Was Beta Sterling taken within 24 hours: N/A Was Clonidine taken within 24 hours: N/A Last intake: > 8hrs Exam alert, oriented x 3, clear to auscultation bilaterally and regular rate & rhythm CV/HEM Hypertension TAA Metabolic Hyperlipidemia Neuropsych Brain aneurysm w/ hemorrhage on hospice Anesthetic Plan ASA status: 4 Anesthesia: General Risk of > 500 ml blood loss (7ml/kg in children): No Medications/Allergies Home Medications ?Medication ?Instructions ?Recorded ?Confirmed ?Last Taken ?Type acetaminophen 325 mg tablet 325 mg PO QID PRN Pain 04/22/20 01/01/25 Unknown History (Tylenol) triamcinolone acetonide 0.1 % 1 applic topical BID 14 days #80 08/09/24 01/01/25 08/17/24 Rx topical cream grams atropine 1 % eye drops 4 drp sublingual Q4H PRN 08/18/24 01/01/25 Unknown Rx secretions #5 mL bisacodyl 10 mg rectal suppository 10 mg IA DAILY PRN constipation #5 08/18/24 01/01/25 Unknown Rx ea hydrocodone 7.5 mg-acetaminophen 1 tab PO TID PRN pain 15 days #45 08/28/24 01/01/25 Unknown Rx 325 mg tablet tabs hydroxyzine HCl 25 mg tablet 25 mg PO TID PRN Itching 30 days 10/25/24 01/01/25 Unknown Rx #30 tabs amlodipine 5 mg tablet 5 mg PO DAILY #30 tabs 12/18/24 01/01/25 Unknown Rx clotrimazole 1 % topical cream 1 applic topical BID 4 weeks #30 12/20/24 01/01/25 Unknown Rx (Lotrimin AF (clotrimazole)) grams ondansetron 4 mg disintegrating 4 mg translingual Q4H PRN nausea 12/27/24 01/01/25 Unknown Rx tablet #30 tabs diphenhydramine HCl 25 mg tablet See Rx Instructions .Route .COMPLEX 01/01/25 01/01/25 Unknown History hydrochlorothiazide 25 mg tablet 25 mg PO DAILY 01/01/25 01/01/25 Unknown History lidocaine 5 % topical patch See Rx Instructions .Route .COMPLEX 01/01/25 01/01/25 Unknown History lorazepam 2 mg/mL oral concentrate See Rx Instructions .Route 01/01/25 01/01/25 Unknown History .COMPLEX PRN Anxiety/Seizure meclizine 25 mg chewable tablet 50 mg PO DAILY PRN nausea/vomiting 01/01/25 01/01/25 Unknown History (Bonine) morphine 30 mg tablet,extended 30 mg PO DAILY pain 01/01/25 01/01/25 Unknown History release (MS Contin) morphine concentrate 100 mg/5 mL See Rx Instructions .Route .COMPLEX 01/01/25 01/01/25 Unknown History (20 mg/mL) oral solution sennosides 8.6 mg-docusate sodium 1 tab PO BID 01/01/25 01/01/25 Unknown History 50 mg tablet (Stimulant Laxative Plus) Allergies Allergy/AdvReac Type Severity Reaction Status Date / Time Iodinated Contrast Media Allergy rash Verified 08/19/23 10:36 ketorolac (From Toradol) Allergy Unknown Verified 08/19/23 10:12 Current Medications Generic Name Dose Route Start Last Admin Trade Name Freq PRN Reason Stop Dose Admin Hydrocodone Bitart/Acetaminophen 1 tab 01/01/25 16:19 01/02/25 11:43 Hydrocodone-Acetaminophen 5-325 Mg Tablet PO 1 tab On Hold: 01/02/25 14:32 Q4H PRN Administration Comment: Order held by Process MODERATE TO SEVERE PAIN Transfer Amlodipine Besylate 5 mg 01/02/25 05:00 01/02/25 04:58 Amlodipine 5 Mg Tablet PO 5 mg On Hold: 01/02/25 14:32 DAILY DEX Administration Comment: Order held by Process Transfer Diazepam 5 mg 01/01/25 17:57 01/02/25 11:43 Diazepam 5 Mg Tablet PO 5 mg On Hold: 01/02/25 14:32 Q4H PRN Administration Comment: Order held by Process MUSCLE SPASMS Transfer Enoxaparin Sodium 40 mg 01/02/25 12:00 01/02/25 11:45 Enoxaparin 40 Mg/0.4 Ml Syringe SUBCUT Not Given On Hold: 01/02/25 14:32 Q24H DEX Comment: Order held by Process Transfer Hydromorphone HCl 1 mg 01/01/25 20:58 01/02/25 13:15 Hydromorphone 0.5 Mg/0.5 Ml Inj IVP 1 mg On Hold: 01/02/25 14:32 Q4H PRN Administration Comment: Order held by Process PAIN Transfer Sodium Chloride 1,000 mls @ 100 mls/hr 01/01/25 16:30 01/02/25 13:24 Sodium Chloride 0.9% IV 100 mls/hr On Hold: 01/02/25 14:32 .Q10H DEX Administration Comment: Order held by Process Transfer Methocarbamol 1,500 mg 01/01/25 17:15 01/02/25 09:34 Methocarbamol 750 Mg Tablet PO 1,500 mg On Hold: 01/02/25 14:32 Q6H DEX Administration Comment: Order held by Process Transfer Ondansetron HCl 4 mg 01/01/25 20:59 01/02/25 05:05 Ondansetron 2 Mg/Ml Sdv 2 Ml IVP 4 mg On Hold: 01/02/25 14:32 Q6H PRN Administration Comment: Order held by Process vomiting, or N/V if npo Transfer Pantoprazole Sodium 40 mg 01/01/25 16:30 01/01/25 17:56 Pantoprazole 40 Mg Sdv IVP Not Given On Hold: 01/02/25 14:32 Q24H DEX Comment: Order held by Process Transfer [facility] Anesthesia Medical History Ruptured aneurysm of intracranial artery Brain aneurysm 2 surgeries clips placed 2001 and 2011 Hypertension Stroke Thoracic aortic aneurysm Hyperlipidemia, unspecified hyperlipidemia type Surgical History History of hysterectomy Family History Other Cancer Diabetes Hypertension Social History Smoking and tobacco/nicotine status: current every day tobacco/nicotine user Alcohol intake: current Alcohol intake frequency: holidays/special occasions only Additional social history: Patient is accompanied by her daughter Josey and Jl. CODE STATUS discussed this morning by Dr. Chacko and myself with patient and family confirmed to be DNR on 08/18/2024 Household members: spouse Marital status: Data Anesthesia 01/02/25 04:50 01/02/25 04:50 Short CBC 01/01/25 01/02/25 Range/Units 15:00 04:50 WBC 12.06 H 8.09 (3.29-11.43) 10^3/uL Hgb 12.60 11.80 (11.27-16.99) g/dL Hct 37.5 35.8 L (36-47) % MCV 93.5 96.0 (85-98) fl Plt Count 237 223 (157-399) 10^3/cmm Neut % (Auto) 73.4 54.1 % Neut # (Auto) 8.84 H 4.37 (1.8-7.7) 10^3/uL BMP 01/01/25 01/02/25 15:00 04:50 Sodium 137 142 Potassium 3.9 4.0 Chloride 102 105 Carbon Dioxide 21 L 25 BUN 7 L 7 L Creatinine 0.4 L 0.5 Glucose 122 H 106 Calcium 9.0 9.0 Liver Function 01/01/25 Range/Units 15:00 Total Bilirubin 0.2 (0.15-1.2) mg/dL AST 33 H (0-32) U/L ALT 23 (0-33) U/L Alkaline Phosphatase 107 H (35-105) U/L Albumin 4.0 (3.5-5.2) g/dL Urine 01/01/25 Range/Units 19:15 Urine Color Yellow (Yellow) Urine Appearance Clear (CLEAR) Urine pH 6.0 (5-7) Ur Specific [place] 1.014 (1.005-1.030) Urine Protein Negative (Negative) Urine Glucose (UA) Negative (Normal) Urine Ketones Trace (Negative) Urine Nitrate Negative (Negative) Urine Bilirubin Negative (Negative) Ur Leukocyte Esterase Negative (Negative) Urine RBC 0-2 (0-2) /hpf Urine WBC 0-5 (0-5) /hpf Coags 01/01/25 15:00 PT 13.50 INR 0.97 APTT 28.7
--- NOTE | 2025-01-02 15:25 | SC_ITS ---
WS: [id number] Exam: C-arm FL for CVA [id number] Date/Time of Exam: 01/02/2025 3:25 PM Reason For Exam: ORIF RT HIP DLP: AP and lateral intraoperative C-arm images of the RIGHT hip are submitted. Images depict internal fixation of an intertrochanteric fracture. Alignment appears to be satisfactory for healing. Intramedullary nanda and femoral neck screw in place.
[2025-01-02] MEDS: ceFAZolin 2,000 mg SDV 2000 MG IVP (16:16)
[2025-01-02] MEDS: fentaNYL 50 mcg/mL INJ 2mL IVP (17:15)
--- NOTE | 2025-01-02 17:27 | P.OP_ITS ---
Operative Report Date of procedure: January 02, 2025 Surgeon: Sandeep Alvarado MD Procedure: Preoperative diagnosis: Right intertrochanteric hip fracture Postoperative diagnosis: Same Procedure: Closed reduction with internal fixation using proximal trochanteric nail right hip fracture Surgeon: Sandeep Alvarado MD Anesthesia: General EBL: 100 cc Indications: Em is a 59-year-old white female who yesterday slipped while s tepping off a curb falling and landing on her right side. She had pain and inability to bear weight. She is brought to [facility] emergency room where x-rays demonstrate intertrochanteric hip fracture on the right. Patient is then admitted through the hospitalist service and orthopedic consultation was obtained. After initial evaluation of the patient reviewed the x-rays it felt that she would most benefit from internal fixation of her right hip fracture. All risk benefits treatment alternatives were discussed about a proximal trochanteric nail with she and her family and they are agreeable to this at this time. Procedure: After obtaining her consent patient taken the operating room while still on her hospital bed had generalized second inserted. Once good anesthesia achieved patient was placed over the fracture table and she was secured to the table well. Traction boot was placed on the right lower extremity as well as the left lower extremity. Left lower extremity was dropped out of position. Right lower extremity had traction applied to it. Under gentle manipulation and fluoroscopic evaluation the fracture was reduced. This was confirmed with both AP and lateral views with fluoroscopy. Subsequently right hip and leg were prepped and draped usual fashion. After surgical timeout identification the proximal portion of the greater trochanter was identified and incision was made superior to this measuring approximately 3 to 4 cm length. Sharp dissecting down to subcutaneous tissues and down to the muscular tissue. By digital palpation tip the greater trochanter could be identified. A starting awl was then placed within this confirmed under fluoroscopy and then driven into the greater trochanter. Guide nanda was then placed on down the interventionally ca nal. This was overreamed proximally and then a 10 mm short proximal trochanteric nail was then placed on down over the guidewire into the femur. This confirmed under fluoroscopic evaluation. This had a drill guide attached to it and it was driven on down until appropriate depth. Subsequently, lag screw drill guide was placed in the external drill guide and through a stab wound on the side of the thigh placed up against the lateral cortex of the femur. Guidepin was placed on up through this into the femoral neck and had in appropriate position. AP and lateral views confirmed this. Pin was redirected until in appropriate position. This was then measured to a depth of 90 to millimeters and then reamed to the same depth. A 90 mm lag screw was then placed on up through the guidepin through the proximal trochanteric nail and into the femoral head and neck. Also locked and placed locking screw was placed through the superior portion of the proximal trochanteric nail and locking the lag screw in place. Guide handle was removed as well as guidepin. Distal locking screw drill guide was then placed through the drill guide on the proximal nail stab wound was placed along the lateral thigh at this level. There fluoroscopy was directed down to the cortex of the lateral femur. This was then drilled and measured to a 35 mm screw. 35 mm bicortical screw was placed without any difficulties. Interoperative fluoroscopy on AP and lateral views demonstrate adequate fixation of this fracture as well as good placement hardware. Drill guide was removed off of the trochanteric nail. Wounds are deep fascia was reapproximated 0 Vicryl [id number] Silverlon dressings. Patient was awakened and placed back on her hospital bed and taken to the PACU in stable condition.
[2025-01-02] MEDS: sennosides-docusate Tablet 2 TAB PO (18:48)
[2025-01-02] MEDS: chlorhexidine gluconate 0.12% Btl 473 mL 30 ML MUCOUS MEM (22:08)
[2025-01-02] MEDS: morphine 4 mg/mL SDV 1 mL IVP (22:43)
[2025-01-02] MEDS: metoclopramide 5 mg/mL SDV 2 mL 10 MG IVP (22:44)
[2025-01-03] MEDS: ceFAZolin 2,000 mg SDV 2000 MG IVP ×2 (02:37→08:49)
[2025-01-03] MEDS: HYDROcodone-acetaminophen 5-325 mg Tablet 1 TAB PO ×4 (02:38→16:08)
[2025-01-03 03:35] VITALS: BP 117/68; PULSE 88; RESP 16; TEMP 36.9; O2SAT 90
[2025-01-03] MEDS: mupirocin oint 22 gm 1 APPLIC NASAL (05:18)
[2025-01-03] MEDS: sennosides-docusate Tablet 2 TAB PO ×2 (05:18→16:09)
[2025-01-03] MEDS: multivitamin therapeutic Tablet 1 TAB PO (05:18)
[2025-01-03] MEDS: chlorhexidine gluconate 0.12% Btl 473 mL 30 ML MUCOUS MEM ×2 (05:19→11:48)
[2025-01-03 05:33] LABS: Hematocrit 30.4 % (36-47); Hemoglobin 10.10 g/dL (11.27-16.99); Mean Corpuscular HGB Conc 33.2 g/dL (30-55); Mean Corpuscular Hemoglobin 31.9 pg (27-33); Mean Corpuscular Volume 95.9 fl (85-98); Nucleated Red Blood Cells % 0 %; Platelet Count 178 10^3/cmm (157-399); Red Blood Count 3.17 10^6/uL (3.85-5.65); White Blood Count 8.82 10^3/uL (3.29-11.43)
[2025-01-03 05:57] LABS: Anion Gap 14.1 (5-19); Blood Urea Nitrogen 6 mg/dL (8-23); Calcium 8.5 mg/dL (8.5-10.5); Carbon Dioxide 24 mmol/L (22-29); Chloride 106 mmol/L (98-107); Glucose 124 mg/dL (65-115); Osmolality Calculated 289 mOsm/kg (285-295); Potassium 4.1 mmol/L (3.5-5.1); Sodium 140 mmol/L (136-145)
[2025-01-03 07:44] VITALS: BP 120/71; PULSE 83; RESP 19; TEMP 36.8; O2SAT 93
--- NOTE | 2025-01-03 10:31 | P.DS_ITS ---
Discharge Providers Date of Admission: 01/01/25 16:30 Date of Discharge: January 03, 2025 Attending Provider at Admission: Mamadou Gao Attending Provider at Discharge: Danny Dacosta MD Primary Care Provider: MOISE Tiwari Diagnoses at Discharge Discharge Diagnosis 1. Closed nondisplaced intertrochanteric fracture of right femur, initial encounter: Details from hospital stay: Status post close for sectioning. 2. Brain aneurysm: 3. Primary hypertension: 4. Hyperlipidemia, unspecified hyperlipidemia type: Reason for Visit Reason for Visit: dizzy - fall, right hip pain Brief History: Patient presented with fall at home and pain in the right hip. Getting here, she was covered to have a closed fracture of the right femur. Orthopedics consulted, patient therefore admitted. Hospital Course Hospital Course All symptoms were treated empirically. She had an uneventful procedure by orthopedic surgery: Closed reduction with internal fixation using proximal trochanteric nail right hip fracture. As of today, she was stable, and able to ambulate within the hospital with the help of a walker. She confirmed that she has all the needed help at home, and otherwise doing fine. She is here for discharge home today, pending approval/further instructions from orthopedic surgery. See my discharge instructions for more details. Physical Exam Narrative: General: Awake and alert. No obvious respiratory distress. Neuro/Psych: Cooperative. Oriented x 3 Chest/Resp: Bilateral equal air entry; chest clinically clear. CVS: Rhythm: Regular heart rate and rhythm. Extremities: Bilateral equal pulses. No obvious pitting pedal edema. Urinary Catheter Management: Holguin: Cath Placed During This Visit: yes Reason for Continuing Indwelling Catheter: Perioperative Use in Selected Surgeries Urinary Catheter Date of Insertion: 01/01/25 Urinary Catheter Time of Insertion: 18:57 Discharge Data Studies Completed and Pending Completed Studies During Hospitalization Category Date Time Status XR chest 1V portable [id number] Stat Exams 01/01/25 13:44 Completed XR hip RT 2-3V wo/w pel* [id number] Stat Exams 01/01/25 13:44 Completed Pending at discharge Category Date Time Status Complete Blood Count w/Auto AM LABS Lab 01/04/25 04:00 Ordered Complete Blood Count w/Auto AM LABS Lab 01/05/25 04:00 Ordered Radiology Impressions Chest X-Ray 01/01/25 13:44 IMPRESSION: 1. Chronic interstitial and reticular nodular changes throughout both lungs. No acute process. Vitals Last Vital Signs Temp 98.3 F 01/03/25 07:44 Pulse 83 01/03/25 07:44 Resp 19 H 01/03/25 07:44 BP 120/71 01/03/25 07:44 Pulse Ox 93 01/03/25 07:44 O2 Del Method Room Air 01/03/25 07:44 O2 Flow Rate 3 01/02/25 17:31 Discharge Plan Discharge Patient Disposition: Home Health Service Condition: Stable Prescriptions: New methocarbamol 750 mg Tablet 1,500 mg PO Q6H PRN (Reason: Muscle spasm) Qty: 60 1RF Continued acetaminophen [Tylenol] 325 mg tablet 325 mg PO QID PRN (Reason: Pain) triamcinolone acetonide 0.1 % cream 1 applic topical BID 14 Days Qty: 80 0RF bisacodyl 10 mg suppository 10 mg MS DAILY PRN (Reason: constipation) Qty: 5 0RF atropine 1 % drops 4 drp sublingual Q4H PRN (Reason: secretions) Qty: 5 0RF Rx Instructions: Give 4 drops SL q 4 hours PRN for terminal congestion/excessive secretions. hydroxyzine HCl 25 mg tablet 25 mg PO TID PRN (Reason: Itching) 30 Days Qty: 30 3RF amlodipine 5 mg tablet 5 mg PO DAILY Qty: 30 3RF clotrimazole [Lotrimin AF (clotrimazole)] 1 % cream 1 applic topical BID 28 Days Qty: 30 0RF ondansetron 4 mg tablet,disintegrating 4 mg translingual Q4H PRN (Reason: nausea) Qty: 30 3RF morphine concentrate 100 mg/5 mL (20 mg/mL) solution See Rx Instructions .ROUTE .COMPLEX Rx Instructions: Give 0.25ml - 1ml under the tongue every 1 hour as needed for moderate to severe pain/discomfort. May increase to 0.25ml every 2 hours if no signs of improvement in pain/discomfort. Don not exceed 1ml every 4 hours hydrochlorothiazide 25 mg tablet 25 mg PO DAILY sennosides-docusate sodium [Stimulant Laxative Plus] 8.6-50 mg tablet 1 tab PO BID lidocaine 5 % adhesive patch,medicated See Rx Instructions .ROUTE .COMPLEX Rx Instructions: Apply 1 patch to neck/upper back area in the morning and take off at bedtime. meclizine [Bonine] 25 mg Tablet,Chewable 50 mg PO DAILY PRN (Reason: nausea/vomiting) morphine [MS Contin] 30 mg tablet extended release 30 mg PO DAILY diphenhydramine HCl 25 mg tablet See Rx Instructions .ROUTE .COMPLEX Rx Instructions: Take one tablet by mouth every 4 hours as needed for mild to moderate allergic reaction including: Rash and/or Itching lorazepam 2 mg/mL concentrate See Rx Instructions .ROUTE .COMPLEX PRN (Reason: Anxiety/Seizure) Rx Instructions: 0.25ml-1ml every 4 hours as needed for Anxiety/Seizure Start with 0.25ml may increase to 0.5ml-1ml q4H Changed hydrocodone-acetaminophen 7.5-325 mg tablet 1 tab PO Q4H PRN (Reason: pain) 15 Days Qty: 60 0RF Clinical Laboratory Manager OK for DC: Orthopedics Discharge Order = DC NOW: Discharge Order (Routine); Ordered 01/03/25 Ordered By: Danny Dacosta Referrals: [facility]) [Outside] Sandeep Alvarado MD [Physician, Orthopedics] - 01/23/25 1:15 pm Tresa Machuca FNP [Primary Care Provider, [facility]] Discharge Diet: Regular Discharge Activity: Increase activity as tolerated, Limit activity as instructed and Use walker/crutches as instructed Patient Instructions: Methocarbamol (By mouth), Acute Wound Care (DC), Opioid Safety, Post Anesthesia Care, Patient Portal & [place] Instructions Activity Restrictions/Additional Instructions: Leave the dressings on this entire time. Continue partial weightbearing with walker ambulation. Patient's Health Concerns: Follow-up with your primary care provider within the next 2 to 3 weeks/as needed. Follow-up with orthopedics as directed. Discharge Attestations Time Spent in Discharge Care*: less than 30 min Status at Discharge: Cognitive status at discharge: cognitively intact , Behavioral status at discharge: cooperative , Quality Metrics Clinical Quality Measures [ No reported AMI, CVA or VTE this stay] Coding Level of Care Code 94772 Diagnoses Closed nondisplaced intertrochanteric fracture of right femur, initial encounter S72.144A Encounter type: initial encounter Fracture alignment: nondisplaced Brain aneurysm I67.1 Primary hypertension I10 Hypertension type: primary hypertension Hyperlipidemia, unspecified hyperlipidemia type E78.5 Hyperlipidemia type: unspecified
--- NOTE | 2025-01-03 11:23 | PC.SOCIAL ---
IMM Updated Updated pt on IMM. No questions voiced. Provided pt a copy. Initialed, dated, & timed a copy & placed in chart.
[2025-01-03 12:00] VITALS: BP 127/74; PULSE 88; RESP 18; TEMP 36.9; O2SAT 95
--- NOTE | 2025-01-03 16:06 | P.PN_ITS ---
Subjective 2 Subjective: Patient is postop day 1 from closed reduction internal fixation of right hip fracture. Patient is up to a walker at this time standing. States she feels 100% better than the other day. She has been up with physical therapy already and moving about with a walk without any difficulties. She would like to go home at this time. Nursing staff feels this is reasonable. Hospitalist was also written discharge orders Vitals/I&O/Wt Last Vital Signs Temp 98.4 F 01/03/25 12:00 Pulse 88 01/03/25 12:00 Resp 18 01/03/25 12:00 BP 127/74 01/03/25 12:00 Pulse Ox 95 01/03/25 12:00 O2 Del Method Room Air 01/03/25 12:00 O2 Flow Rate 3 01/02/25 17:31 01/03/25 01/03/25 01/03/25 06:59 14:59 22:59 Intake Total 1418.333 / 3365.000 1240 / 1240 Output Total 800 / 2050 Balance 618.333 / 3556.596 4722 / 1240 Weight last 48 hrs Weight 143 lb Weight 148 lb 7 oz Weight 143 lb 1.6 oz Physical Exam 2 Narrative: Patient is up and standing with a walker. Dressings are clear. Urinary Catheter Management: Holguin: Cath Placed During This Visit: yes Reason for Continuing Indwelling Catheter: Perioperative Use in Selected Surgeries Urinary Catheter Date of Insertion: 01/01/25 Urinary Catheter Time of Insertion: 18:57 Data 01/03/25 04:57 01/03/25 04:57 A&P Assessment and plan 1. Closed nondisplaced intertrochanteric fracture of right femur, initial encounter: Patient status post closed reduction with internal fixation of right intertrochanteric hip fracture. All is been going well since surgery yesterday. She states she feels much better. Having much less pain. She is able to be up and ambulatory with a walker with partial weightbearing on this leg. She would like to go home at this time. Plan: Plan at this time is discharge her home follow-up in the next 2 weeks for repeat evaluation. She is just to leave the dressings on this entire time. Continue partial weightbearing with walker ambulation. PDMP PDMP Reviewed: Not Reviewed Attestations 2 Medical Necessity Statement*: Patient was in need of physical therapy, surgery to repair her hip, and pain control. Now all is resolved Coding Level of Care Code Acute Code for Chg Fwd Diagnoses Closed nondisplaced intertrochanteric fracture of right femur, initial encounter S72.144A Encounter type: initial encounter Fracture alignment: nondisplaced
[2025-01-03 16:57] VITALS: BP 127/74; PULSE 88; RESP 18; TEMP 36.9; O2SAT 95
== END 2025-01-03 17:00 | disposition hospice, home (50) | DRG 482 ==
LOC: ER 15:09 → MEDSURG 16:30
PROVIDERS: Orthopaedic Surgery; Admitting Provider Internal Medicine; Emergency Provider Emergency Medicine; PCP Nurse Practitioner Family; Visit Provider Family Medicine
PROC: 0QS634Z Reposition Right Upper Femur with Internal Fixation Device, Percutaneous Approach (ICD-10-PCS; CPT 27245; principal; 2025-01-02 15:00)
DX: S72.144A Nondisplaced intertrochanteric fracture of right femur, initial encounter for closed fracture (principal); I10 Essential (primary) hypertension; E78.5 Hyperlipidemia, unspecified; Z51.5 Encounter for palliative care; I67.1 Cerebral aneurysm, nonruptured; F17.200 Nicotine dependence, unspecified, uncomplicated; Z79.899 Other long term (current) drug therapy; Z88.8 Allergy status to other drugs, medicaments and biological substances; Z91.041 Radiographic dye allergy status; Z86.73 Personal history of transient ischemic attack (TIA), and cerebral infarction without residual deficits; Z90.710 Acquired absence of both cervix and uterus; W01.0XXA Fall on same level from slipping, tripping and stumbling without subsequent striking against object, initial encounter; Y92.009 Unspecified place in unspecified non-institutional (private) residence as the place of occurrence of the external cause
CPT/HCPCS: 36415; 51702; 71045; 73502; 77001; 80048; 80053; 81001; 85025; 85610; 85730; 93005; 96374; 96375; 97110; 97116; 97162; 97165; 97530; 99285; C1713; J0690; J1100; J1171; J1885; J2250; J2270; J2360; J2405; J2765; J3010; J7030; J9999

== ENCOUNTER → 2025-01-23 14:23 | Outpatient (BNVA) | payer MEDICARE, SELFPAY | PROVIDERS: PCP Nurse Practitioner Family; Visit Provider Orthopaedic Surgery | DX: S72.144D Nondisplaced intertrochanteric fracture of right femur, subsequent encounter for closed fracture with routine healing (principal); X58.XXXD Exposure to other specified factors, subsequent encounter | CPT/HCPCS: 73502; 99024 ==